=== PATIENT | female | born 1940 | race Caucasian/White ===

== ENCOUNTER 2019-02-19 09:30 | Inpatient (IN) ==
[2019-02-19] MEDS ORDERED: COMPAZINE IV PRN (14:47)
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
--- NOTE | 2019-02-19 15:00 | EKG Report ---
Test Performed on : 02/19/2019 2:53:15 PM Test Reason : preop rythm eval Blood Pressure : / mmHG Vent. Rate : 085 BPM Atrial Rate : 085 BPM P-R Int : 174 ms QRS Dur : 074 ms QT Int : 392 ms P-R-T Axes : 065 -52 059 degrees QTc Int : 466 ms Sinus rhythm. with with sinus arrhythmia. Left axis deviation Anteroseptal infarct (cited on or before 01-MAY-2017) Abnormal ECG When compared with ECG of 01-MAY-2017 10:36, Criteria for Inferior infarct are no longer present Questionable change in initial forces of Anteroseptal leads Nonspecific T wave abnormality, improved in Lateral leads Confirmed by Gisel ARGUETA, Tim Crespo ([id number]) on 02/19/2019 6:05:52 PM
--- NOTE | 2019-02-19 15:15 | Diag Imaging Result Doc PS360 ---
CHEST-PORTABLE - 02/19/2019 INDICATION: r/o pna COMPARISON: 01/31/2019 FINDINGS: Stable right chest port. Stable old right rib deformity. Stable linear scarring at the left lung apex. No infiltrates or edema. Heart size is top normal. IMPRESSION: No acute disease. Electronically signed by Tobin Aranda 02/19/2019 3:13 PM
[2019-02-19] MEDS: NS 1,000 ML IV SCH ×2 (15:29→23:28)
[2019-02-19 16:11] LABS: BASO# 0.02 X1000 (0.0-0.2); BASO% 0.2 % (0.0-0.8); EOS# 0.34 X1000 (0.0-0.7); EOS% 3.8 % (0.0-10.0); HEMATOCRIT 48.1 % (37.0-47.0); HEMOGLOBIN 15.8 g/dL (12.0-16.0); IMM GRAN# 0.03 X1000 (0.0-0.04); IMM GRAN% 0.3 % (0.0-0.5); LYMPH# 1.08 X1000 (1.2-3.4); LYMPH% 12.1 % (20.5-51.1); MCH 32.8 PG (27-31); MCHC 32.8 g/dL (33-37); MCV 99.8 FL (81-99); MONO# 0.96 X1000 (0.11-0.59); MONO% 10.7 % (1.7-9.3); MPV 10.8 FL (7.4-10.4); NEUT# 6.52 X1000 (1.4-6.5); NEUT% 72.9 % (42.2-75.2); PLT 192 X1000 (130-400); RBC 4.82 XMIL (4.2-5.4); WBC 8.95 X1000 (4.8-10.8)
[2019-02-19 16:21] LABS: INR 1.46; PTT 48.7 Seconds (22.3-41.8)
[2019-02-19 16:26] LABS: URINE SOURCE CLEAN CATCH
[2019-02-19 16:27] LABS: BILIRUBIN URINE NEGATIVE (NEGATIVE); BLOOD URINE NEGATIVE (NEGATIVE); COLOR YELLOW; GLUCOSE URINE NEGATIVE (NEGATIVE); KETONE URINE NEGATIVE (NEGATIVE); LEUKOCYTES URINE NEGATIVE (NEGATIVE); NITRITE URINE NEGATIVE (NEGATIVE); PROTEIN URINE 30 mg/dL (NEGATIVE); TURBIDITY URINE CLEAR (CLEAR); UR EPITHELIAL CELLS <10 /HPF (<10); URINE BACTERIA NEGATIVE /HPF; URINE RBC <10 /HPF (<10); URINE WBC <10 /HPF (<10); UROBILINOGEN URINE NORMAL (NORMAL)
[2019-02-19] MEDS: PERCOCET-10 PO PRN ×2 (16:52→23:28)
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
--- NOTE | 2019-02-19 20:01 | GENERAL SURGERY CONSULTATION ---
DATE: 02/19/2019 REQUESTING PHYSICIAN: Dr. Hester. REASON FOR CONSULT: Pneumatosis intestinalis. HISTORY OF PRESENT ILLNESS: A 78-year-old female with a history of metastatic colon cancer with liver metastases, who has been treated by Dr. Hester. She had surgery by Dr. Morgan back in 2017. She has been doing okay and has been receiving radiation therapy, and has been developing some abdominal discomfort. She had a CT scan done as an outpatient that showed pneumatosis intestinalis. She has been admitted for further evaluation. I was asked to weigh an opinion. The patient is reporting some abdominal pain in her upper abdomen. PAST MEDICAL HISTORY: Includes: 1. Hypertension. 2. Metastatic colon cancer. PAST SURGICAL HISTORY: Includes: 1. Hysterectomy. 2. Multiple orthopedic surgeries. 3. Right port. 4. Colon resection. FAMILY HISTORY: Positive for colon cancer. SOCIAL HISTORY: Current smoker. ALLERGIES: Zofran, Phenergan, Dilaudid, morphine, penicillin. HOME MEDICATIONS: Reviewed. REVIEW OF SYSTEMS: A full 14 systems were reviewed and negative except as specified in HPI. PHYSICAL EXAMINATION: Vital Signs: Patient is currently afebrile. Her vital signs stable. General: No acute distress. Alert, interactive female who looks stated age. HEENT: Normocephalic, atraumatic. Pupils equal, round, reactive to light. Mucous membranes moist. Oropharynx benign. Neck: Supple. Trachea midline. Cardiovascular: Regular rate and rhythm. Lungs: Grossly clear. Abdomen: Soft. Some discomfort in the epigastric area, but no peritoneal signs. Extremities: Moves all extremities. Neurologic: Grossly intact. Skin: No signs of jaundice. Vascular: All extremities perfused. LABORATORY: Pending. CT scan as noted above with pneumatosis intestinalis. ASSESSMENT AND PLAN: A 78-year-old female with pneumatosis intestinalis. 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 We will consult Dr. Phoenix with GI for a colonoscopy to see what the mucosal surfaces look like. At this point, the patient is not toxic, so I do not think we have to do any kind of emergent operation. We will let Dr. Morgan know that the patient has been admitted. We will have him see her tomorrow. cc: Dedrick Chang MD
[2019-02-19] MEDS: KLONOPIN PO SCH (21:35)
[2019-02-20] MEDS: PERCOCET-10 PO PRN ×4 (05:25→22:28)
[2019-02-20 07:08] LABS: BASO# 0.03 X1000 (0.0-0.2); BASO% 0.4 % (0.0-0.8); EOS# 0.46 X1000 (0.0-0.7); EOS% 5.4 % (0.0-10.0); HEMOGLOBIN 15.5 g/dL (12.0-16.0); IMM GRAN# 0.04 X1000 (0.0-0.04); IMM GRAN% 0.5 % (0.0-0.5); LYMPH# 1.08 X1000 (1.2-3.4); LYMPH% 12.7 % (20.5-51.1); MONO# 0.91 X1000 (0.11-0.59); MONO% 10.7 % (1.7-9.3); MPV 10.6 FL (7.4-10.4); NEUT# 5.99 X1000 (1.4-6.5); NEUT% 70.3 % (42.2-75.2); PLT 155 X1000 (130-400); RDW 14.9 % (11.5-14.5); WBC 8.51 X1000 (4.8-10.8)
[2019-02-20 07:24] LABS: INR 1.17; PTT 28.1 Seconds (22.3-41.8)
[2019-02-20 07:41] LABS: AGAP 10; ALKALINE PHOSPHATASE 156 U/L (32-104); BUN 4 mg/dL (8-22); CALCIUM 7.9 mg/dL (8.8-10.2); CHLORIDE 106 mmol/L (98-107); COSMO 283; CREATININE 0.3 mg/dL (0.5-0.9); ESTIMATED GFR > 60; GLUCOSE 113 mg/dL (70-104); GOT 21 U/L (10-30); GPT 10 U/L (10-36); MAGNESIUM 1.5 mg/dL (1.5-2.7); POTASSIUM 2.9 mmol/L (3.5-5.1); SODIUM 143 mmol/L (136-145); TCO2 27 mmol/L (25-35)
--- NOTE | 2019-02-20 07:50 | PROGRESS NOTE ---
DATE: 02/20/2019 SUBJECTIVE: Ms. Ibarra did not sleep much last night, a little more comfortable. She has most of her discomfort on the right side, she says where her liver is. She remains afebrile. OBJECTIVE: Vital Signs: Temperature 98.3 degrees, pulse 87, respirations 17, blood pressure 129/81. HEENT: Pupils are equal and round. Lungs: Clear in all lung saravia. Cardiovascular: Regular rate without murmur or S3. Abdomen: Soft. Skin: Warm and dry. Urine output was 3400 mL. LABORATORY DATA: Reviewed labs from yesterday. White count 8510, hematocrit 47, platelet count 155,000. Magnesium 1.7. TSH was 0.47. Urinalysis unremarkable. Her chest x-ray, no acute disease. ASSESSMENT AND PLAN: 1. Metastatic colon cancer, KRAS mutated with liver metastasis. 2. Apparent pneumatosis of the transverse colon concerning for bowel ischemia. 3. Hypokalemia. Continue supplement as needed. 4. Intractable nausea, vomiting, and diarrhea that is improved. Her stools have slowed down. 5. Anorexia and weight loss. She figures she has lost about 35 pounds over the last couple of years. She is getting Percocet for her pain. REVIEW OF HER ORDERS: She is on Klonopin 0.5 mg b.i.d., normal saline at 125 mL an hour, oxycodone 1 q.6 hours p.r.n., Compazine 10 mg IV 4 times a day p.r.n. for nausea. I think the plan is to pursue a colonoscopy. General surgery is following, Dr. Chang. We want to look at what the mucosal surface looks like. The patient is not toxic at this time. cc: Evangelista Leigh MD
[2019-02-20] MEDS: NS 1,000 ML IV SCH ×2 (07:55→20:46)
[2019-02-20] MEDS ORDERED: NS 1,000 ML IV SCH (08:06)
[2019-02-20] MEDS: KLONOPIN PO SCH ×2 (08:35→20:46)
[2019-02-20] MEDS: REGLAN IV PRN (08:35)
[2019-02-20] MEDS: LOVENOX SUBQ SCH (08:35)
[2019-02-20] MEDS ORDERED: ZOFRAN IV SCH (09:00)
[2019-02-20] MEDS: NS IV SCH ×2 (10:00→20:47)
[2019-02-20] MEDS: ZOFRAN IV SCH ×2 (10:00→20:47)
--- NOTE | 2019-02-20 12:24 | HEMO/ONC PROGRESS NOTE ---
DATE: 02/20/2019 HISTORY OF PRESENT ILLNESS: Ms. Ibarra is awake, sitting up in bed this morning. She states that she feels slightly better than she did yesterday due to the IV fluids. She states she is still nauseated and has abdominal pain. She states she did not sleep very well last night. She has right-sided abdominal pain and she is very anxious. OBJECTIVE: Vital Signs: Temperature 97.7 degrees, pulse rate 80, respiratory rate 18, blood pressure 130/70, O2 saturation 97% on room air. She is in 9/10 abdominal pain. General: This is an elderly female in no acute distress. She does appear very anxious. HEENT: Sclerae is anicteric. PERRLA. Oral mucosa is dry. Skin: Skin appears dry, intact. No petechiae, ecchymosis, or rash noted. Cardiovascular: Normal S1, S2. Heart rate and rhythm is regular. Respiratory: Chest is clear to auscultation. Normal respiratory effort. Gastrointestinal: Soft and nondistended. Tenderness to right upper quadrant. Neurological: Awake, alert, and oriented x3. She has decreased mobility of her left lower extremity and walks with a limp. Extremities: No lower extremity edema noted. LABORATORY: WBC is 8.51, hemoglobin 15.5, hematocrit 47.0, platelet count 155,000. ANC 5.99. Potassium 2.9, creatinine 0.3, calcium 7.9, magnesium 1.5. ASSESSMENT: 1. Metastatic colon cancer, KRAS mutated with liver metastasis. 2. Apparent pneumatosis of the transverse colon wall concerning for bowel ischemia. 3. Hypokalemia. 4. Intractable nausea, vomiting, and diarrhea that is improving. 5. Anorexia and weight loss, poor nutrition and deconditioning. PLAN: The patient needs to remain on IV fluids for dehydration. We have also added ProcalAmine to improve her nutritional status. The patient states that she remains nauseated. We have added some more nausea medicines to her orders. We appreciate the GI consult to pursue a colonoscopy to view the mucosal surface. Continued medical management of the patient. We will continue to follow along closely. Dictated by KARMEN Gaytan for Gregorio Hester MD cc: Gregorio Hester MD [facility]
[2019-02-20] MEDS: CIPRO 400 MG/D5W 400 MG/200 ML IVPB IV SCH (15:50)
[2019-02-20] MEDS: FLAGYL 500 MG/NS 500 MG/100 ML IVPB IV SCH (16:03)
[2019-02-20] MEDS: CLINIMIX E 4.25%-5% SOLUTION 1,000 ML IV SCH (16:48)
--- NOTE | 2019-02-20 20:38 | GENERAL SURGERY PROGRESS NOTE ---
DATE: 02/20/2019 SUBJECTIVE: Feels some better. She is more alert. She continues to have some vague abdominal discomfort. No fevers. No tachycardia. OBJECTIVE: Vital Signs: Blood pressure 130/70. General: She is alert. Cardiovascular: Normal rate. Abdomen: Soft, nontender, nondistended. LABORATORY DATA: White count is 8, hematocrit is 47. Creatinine is 0.3. ASSESSMENT AND PLAN: A 78-year-old female admitted with abdominal pain. She has metastatic colon cancer, status post right colectomy almost 3 years ago. She has undergone adjuvant therapy to her liver via chemoembolization, as well as apparently external beam radiation therapy. There was question of pneumatosis, although this is not definitive on her CT scan. She has a normal white count with no fevers, and her abdominal exam is benign. I would begin gradually advancing her diet as tolerated. She does need to be on stool softeners. I would hold off on any colonoscopy intervention at this juncture until she is no longer having abdominal pain. We can arrange this as an outpatient. She has been somewhat lost to followup over the last couple years, and I do not know whether she has had a postoperative colonoscopy or not, but this would be important to obtain. cc: Montana Morgan MD
[2019-02-21] MEDS: FLAGYL 500 MG/NS 500 MG/100 ML IVPB IV SCH ×3 (00:55→16:25)
[2019-02-21] MEDS: CIPRO 400 MG/D5W 400 MG/200 ML IVPB IV SCH ×2 (03:32→14:56)
[2019-02-21] MEDS: CLINIMIX E 4.25%-5% SOLUTION 1,000 ML IV SCH ×2 (03:36→18:47)
[2019-02-21] MEDS: PERCOCET-10 PO PRN ×4 (04:05→22:48)
[2019-02-21] MEDS: REGLAN IV PRN (04:05)
[2019-02-21] MEDS: NS 1,000 ML IV SCH ×2 (04:08→16:22)
[2019-02-21] MEDS: ZOFRAN IV SCH ×2 (08:27→20:21)
[2019-02-21] MEDS: KLONOPIN PO SCH ×2 (08:27→20:21)
[2019-02-21] MEDS: LOVENOX SUBQ SCH (08:27)
[2019-02-21] MEDS: NS IV SCH ×2 (08:27→20:21)
--- NOTE | 2019-02-21 11:08 | PROGRESS NOTE ---
DATE: 02/21/2019 SUBJECTIVE: She is feeling about 50% better than yesterday by report. OBJECTIVE: Vital signs: Temperature 97.9 degrees, pulse 76, respirations 18, blood pressure 134/67. HEENT: Pupils are equal and round. Lungs: Are clear in all lung saravia. Cardiovascular: Regular rhythm and rate without murmur or S3. Abdomen: Is soft. Skin: Is warm and dry. FINDINGS ON ADMISSION: Admitted with abdominal pain has metastatic colon cancer status post right colectomy about 3 years ago. She has undergone adjuvant therapy with chemo for liver via chemoembolization as well as external beam radiation. There was question of pneumatosis, although this is not definite on the CT scan. Normal white count with no fevers. Abdominal exam was benign. So I think the plan is to advance her diet as possible. She feels better. Abdominal pain is diminished. Temp is afebrile, temperature 97.9 degrees, pulse 76, respirations 18, blood pressure 134/67. Pupils are equal round. Lungs are clear in all lung saravia. Cardiovascular regular rate without murmur or S3. ASSESSMENT AND PLAN: 1. Metastatic colon cancer, KRAS mutated with liver metastasis. 2. Apparent pneumatosis of the transverse colon, but appears to be doing better clinically. Concern for bowel ischemia. 3. Hypokalemia. 4. Intractable nausea, vomiting, diarrhea, which is improving. 5. Anorexia and weight loss. We are apparently going to advance the diet as able. REVIEW OF ORDERS: The patient on Cipro 400 mg IV q.12h, Klonopin 0.5 mg b.i.d., Flagyl 500 mg IV q.8 hours, Clinimix 75 mL an hour, oxycodone 1 q.6 hours p.r.n.. cc: Evangelista Leigh MD
--- NOTE | 2019-02-21 12:37 | GASTROENTEROLOGY CONSULTATION ---
DATE: 02/20/2019 REASON FOR CONSULTATION: Pneumatosis intestinalis. HPI: Ms. Howie Ibarra is a 78-year-old woman with past medical history of metastatic colon cancer with liver metastases who underwent right hemicolectomy in March 2017, status post chemotherapy with FOLFIRI and Avastin. That was completed on 11/11/2018 and 2 rounds of Y-90 [*] in December and 01/21/2019 of this year, who presents with abdominal pain, nausea, vomiting, and diarrhea. The patient reports having developed projectile, nonbloody, nonbilious emesis and periumbilical pain immediately following her Y-90 treatment. Her symptoms have been ongoing since December with intermittent dry heaving. She is in tolerating liquids and, however, p.o. intake of solids have decreased significantly. She also notes having diarrhea with 4 to 7 bowel movements a day that would be watery. No blood or melena. She complains of fever with low-grade temperature around 100. She was given a ten-day course of antibiotics after her lactase by Dr. Angeles did not improve her symptoms. She endorses this with generalized fatigue with lightheadedness. No chest pain or shortness of breath. She had a staging CT of the chest, abdomen and pelvis by Dr. Hester on the day of presentation, which prompted her admission to the hospital. There were some findings that showed apparent pneumatosis in the transverse colon wall concerning for bowel ischemia. REVIEW OF SYSTEMS: As per HPI, otherwise 12 point review of systems is negative. Of notes, she reports significant weight loss over the last 3 months. Her weight has come down from 145 to 108 pounds. PAST MEDICAL HISTORY: As per HPI. Other history includes hypertension, osteoporosis. PAST SURGICAL HISTORY: Hysterectomy, multiple orthopedic surgeries of the left leg, right chest port, right roshni colectomy. FAMILY HISTORY: Mother had colon cancer. SOCIAL HISTORY: She is a 1/2 pack per day smoker. No alcohol or drug use. MEDICATIONS: She is on Klonopin and Percocet, vitamin D, omeprazole, lisinopril, Norvasc, potassium. ALLERGIES: To morphine, penicillin, Dilaudid, Xanax, Phenergan. PHYSICAL EXAMINATION: Vital Signs: Temperature is 98.9 degrees, heart rate is 84, blood pressure 134/73, O2 saturation 87% on 2 L nasal cannula. General: The patient is awake, alert, in no acute distress. HEENT: Sclerae anicteric. Moist mucous membranes. Extraocular motor intact. Neck: Supple. No JVD lymphadenopathy. Cardiac: Regular rate and rhythm. No murmurs. Lungs: Clear to auscultation bilaterally. No wheezing. Abdomen: Soft, minimal tenderness to deep palpation throughout. No rebound or guarding. Bowel sounds present. No ascites. Extremities: No clubbing, cyanosis, or edema. Neurologic: Nonfocal. LABS: White count 8.5, hemoglobin 15.5, platelets of 155,000. INR 1.17. Sodium 143, potassium 2.9, chloride 106, bicarb 27, BUN of 4, creatinine 0.3, glucose 113. LFTs notable for alkaline phosphatase of 156, total protein 6.0, albumin 3.0. Troponins negative. TSH 0.47. UA shows proteinuria. Blood cultures x2 no growth to date. IMAGING: CT of chest, abdomen and pelvis with contrast on 02/19/2019 shows no change in the chest, apparent pneumatosis of transverse wall and some of the ascending colon. This was not previously seen. No portal venous gas. Stable advanced vascular disease of the abdominal aorta. 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 The hepatic veins are patent. No small bowel obstruction. No free fluid. There is an increase in size of the metastases in the anterior right lobe of the liver measuring 3.8 x 5.9 cm, stable. Questionable thickened small area of hypodensity at the anterior fissure that may just be fatty change. ASSESSMENT AND PLAN: Ms. Hwoie Ibarra is a 78-year-old woman with past medical history of metastatic colon cancer with hepatic metastases, who is status post chemotherapy with FOLFIRI and Avastin completed in November 2018 and recent Y-90 in December and January 21, who presents with nausea, vomiting, diarrhea, and abdominal pain. Found to have pneumatosis intestinalis on CT in the transverse and descending colon as well as increased size of her liver metastases. Her vital signs are stable. Her white count is normal. Her abdominal exam shows no signs of peritonitis and is minimally tender to palpation. Her labs are unrevealing except for some mild hypokalemia likely related to her nausea, vomiting, diarrhea, protein-calorie malnutrition with her low BUN, creatinine, and mildly elevated alkaline phosphatase. We will check a lactate; however, I suspect that will be normal. I have put her on empiric antibiotics with Cipro and Flagyl given her penicillin allergy. I spoke with interventional radiology at [facility] who said that is unusual for patient to develop pneumatosis after Y90. The patient does have significant advanced peripheral artery disease of the abdominal aorta and a moderate stenosis of the SMA, which could represent or explain her pneumatosis if she had transient ischemia. At this time, her presentation does not warrant endoscopic evaluation. I have also ordered Clostridium difficile studies to rule out Clostridium difficile as the cause of her diarrhea. We will monitor clinically. We will consider abdominal exams. Surgery is following as well as Oncology. We will try continue on a clear liquid diet for now. Thank you for this consult. We will follow with you. Please call with any questions or concerns.
--- NOTE | 2019-02-21 15:13 | GENERAL SURGERY PROGRESS NOTE ---
DATE: 02/21/2019 Ms. Ibarra says she feels a little bit better. She is afebrile with stable hemodynamics. She is taking her liquids. PLAN: The plan is to advance her diet if possible. cc: David Spring MD
--- NOTE | 2019-02-21 16:47 | Diag Imaging Result Doc PS360 ---
EXAM: KUB ABDOMEN INDICATION: Eval for Pneumatosis intestinalis TECHNIQUE: One view COMPARISON: 01/31/2019 FINDINGS: There is a small amount of retained barium in the descending and sigmoid colon from a previous study. There are unremarkable bowel gas and stool patterns. There is no obstructive pattern. There is no evidence of large volume free abdominal gas. There is no discrete radiographic evidence of pneumatosis intestinalis. IMPRESSION: Essentially unremarkable plain radiograph of the abdomen. No evidence of pneumatosis intestinalis by plain radiograph. Electronically signed by John Connelly 02/21/2019 4:45 PM
[2019-02-21] MEDS: CULTURELLE PO SCH (20:21)
[2019-02-21] MEDS: MIRALAX PO SCH (20:21)
--- NOTE | 2019-02-21 22:21 | GASTROENTEROLOGY PROGRESS NOTE ---
DATE: 02/21/2019 SUBJECTIVE: The patient is resting in bed. She is feeling better. She denies any fevers, rigors, chills. Denies any nausea or vomiting. She complains of constipation. She has mild bloating in the abdomen, which she attributes to constipation. She is eating well. OBJECTIVE: Vital signs: Temperature 98, pulse rate of 82, respiratory rate 18, blood pressure 133/70, saturating 90% on nasal cannula. Body weight of 106 pounds, 2 ounces. BMI of 20.1 kg/m2. General Appearance: Thinly built, lying in bed, in no acute distress. HEENT: No pallor. No icterus. Neck: Supple. Abdomen: Protuberant, tympanic on percussion. Mild discomfort in the pelvic region. No rebound or guarding. Extremities: No cyanosis or clubbing. Neurologic: She is alert, awake, oriented x3. LABS: No labs were drawn today. Her abdominal x-ray was done today, which showed essentially unremarkable plain radiograph of the abdomen. No evidence of pneumatosis intestinalis by plain radiograph. IMPRESSION AND PLAN: 1. Metastatic colon cancer with KRAS mutation with liver metastases. This is being followed by the primary team and Oncology team. 2. Intestinal pneumatosis of the transverse colon. She is feeling better. Surgery is on board. This could be a benign finding, but she does have extensive vascular disease in the aorta and small vessels, attributed to chronic tobacco abuse. She may need a repeat imaging in the form of CT scan in 72 hours to confirm the resolution of pneumatosis. Her lactate is normal. Her abdominal x-ray is also normal. We will continue supportive management. 3. Tobacco abuse. Patient counseled to quit smoking completely. 4. Peripheral vascular disease, based on imaging. Continue to watch for now. 5. Constipation. We will start on MiraLAX twice daily. 6. Intractable nausea and vomiting, improving. 7. Anorexia/weight loss. We will continue to advance her diet as tolerated. 8. Deep venous thrombosis with Lovenox once daily. 9. She will continue on empiric antibiotics and also the Cipro and Flagyl for now. 10. Gastrointestinal prophylaxis: I will start with Pepcid once daily. The above plans were discussed with the patient and all questions answered. Please call us with any further questions. cc: MD Evangelista Reid MD Naveen T. Lobo, MD [facility]ENTER[facility]usam
[2019-02-22] MEDS: FLAGYL 500 MG/NS 500 MG/100 ML IVPB IV SCH ×3 (00:09→17:57)
[2019-02-22] MEDS: CIPRO 400 MG/D5W 400 MG/200 ML IVPB IV SCH ×2 (02:48→15:37)
[2019-02-22] MEDS: PERCOCET-10 PO PRN ×3 (04:07→16:29)
--- NOTE | 2019-02-22 07:47 | PROGRESS NOTE ---
DATE: 02/22/2019 SUBJECTIVE: Ms. Ibarra is feeling better but she still has not had a bowel movement. Said the MiraLAX is not working but she does feel better. OBJECTIVE: Temperature 99.1 degrees, pulse 77, respirations 18, blood pressure 133/75. Pupils are equal and round. Lungs are clear in all lung saravia. Cardiovascular Examination: Regular rhythm and rate without murmur or S3. Abdomen is soft. Skin is warm and dry urine. Output is 1300 mL. ASSESSMENT AND PLAN: 1. Metastatic colon cancer, KRAS mutated and with liver metastasis. 2. Questionable pneumatosis of the transverse colon. This seems to be improving. Still has not had a bowel movement. We will probably add lactulose to her MiraLAX and see if we can help with that. 3. Hypokalemia, was replenished. 4. Intractable nausea, vomiting, and diarrhea, which is improving. 5. Anorexia with weight loss. 6. What will do is add lactulose 30 mL twice a day. The MiraLAX she is already getting twice a day. We will give her some Yvonne-Colace as well twice a day and see if that will help with bowel movements. She is getting Clinimix 75 mL an hour. cc: Evangelista Leigh MD
[2019-02-22] MEDS: NS 1,000 ML IV SCH (07:49)
[2019-02-22] MEDS: ZOFRAN IV SCH ×2 (09:16→22:24)
[2019-02-22] MEDS: NS IV SCH ×2 (09:16→22:24)
[2019-02-22] MEDS: KLONOPIN PO SCH ×2 (09:16→22:18)
[2019-02-22] MEDS: CULTURELLE PO SCH ×2 (09:16→22:18)
[2019-02-22] MEDS: PEPCID PO SCH (09:16)
[2019-02-22] MEDS: MIRALAX PO SCH ×2 (09:16→22:18)
[2019-02-22] MEDS: LOVENOX SUBQ SCH (09:17)
[2019-02-22] MEDS: PERICOLACE PO SCH ×2 (10:35→22:18)
[2019-02-22] MEDS: LACTULOSE PO SCH ×2 (10:36→22:18)
[2019-02-22] MEDS: CLINIMIX E 4.25%-5% SOLUTION 1,000 ML IV SCH (15:37)
--- NOTE | 2019-02-22 16:07 | Diag Imaging Result Doc PS360 ---
EXAM: KUB ABDOMEN INDICATION: evaluate for constipation or obstruction TECHNIQUE: One view COMPARISON: 02/21/2019 FINDINGS: There are unremarkable bowel gas and stool patterns. There is no obstructive bowel pattern. There is no evidence of large volume free abdominal gas. There is no evidence of organomegaly. IMPRESSION: No evidence of acute pathology by plain radiograph. Electronically signed by John Connelly 02/22/2019 4:04 PM
--- NOTE | 2019-02-22 18:33 | GASTROENTEROLOGY PROGRESS NOTE ---
DATE: 02/22/2019 ATTENDING PHYSICIAN: Dr. Leigh. PRIMARY CARE PHYSICIAN: Dr. Gregorio Hester. SUBJECTIVE: Patient currently feeling better. She has moved her bowels. She is eating better. She denies any nausea or vomiting. She denies any fevers, rigors, chills. She denies any blood in the stools. She denies any abdominal pain. OBJECTIVE: Vital signs: Temperature 98.6 degrees, pulse of 77, respiratory rate 18, blood pressure 141/77, saturating 96% on nasal cannula. Body weight of 106 pounds 2 ounces. BMI 20.1 kg/m. General: She is a thinly built, lying in bed, in no acute distress. HEENT: No pallor. No icterus. Neck: Supple. Abdomen: Soft, nontender. No guarding or rebound. Extremities: No cyanosis or clubbing. Neurologic: She is alert, awake, and oriented x3. LABORATORY DATA: No labs were drawn today. Her lactate done yesterday was 1. C. difficile toxin was negative and C. difficile antigen was positive. Ova and parasites are negative. Stool culture is pending. Blood culture negative at 48 hours. Abdominal x-ray just done today showed unremarkable bowel gas and stool pattern. Nonobstructive bowel pattern. There is no evidence of organomegaly. IMPRESSION AND PLAN: 1. Metastatic colon cancer with liver metastasis. She is being followed by Dr. Hester. 2. Intestinal pneumatosis of transverse colon. Currently, she is asymptomatic. This could be secondary to extensive vascular disease in the mesenteric vessels versus a benign finding versus any side effect from chemo agents. For now she is feeling better. She is eating better. She is moving her bowels. Her lactate is normal. No need for any endoscopic intervention at this time. If the patient has any abdominal discomfort or symptoms in future then she may need repeat imaging with CT scan to rule out ischemia. 3. Tobacco abuse. Patient counseled to quit smoking completely. 4. Peripheral vascular disease, aware. 5. Constipation. She will continue MiraLAX 17 g p.o. b.i.d. She will continue a high-fiber diet. 6. Intractable nausea and vomiting is improved. She is eating well. Anorexia and weight loss. She will continue to advance the diet as tolerated. 7. DVT prophylaxis with Lovenox once daily. 8. GI prophylaxis with Pepcid once daily. 9. The patient will hopefully be discharged if okay with the primary care team and Oncology team. We will sign off at this time. Please call with any further questions. cc: MD Gregorio Reid MD MTDD
[2019-02-23] MEDS: FLAGYL 500 MG/NS 500 MG/100 ML IVPB IV SCH ×3 (01:00→18:25)
[2019-02-23] MEDS: PERCOCET-10 PO PRN ×4 (02:29→19:28)
[2019-02-23] MEDS: CIPRO 400 MG/D5W 400 MG/200 ML IVPB IV SCH ×2 (04:00→14:27)
[2019-02-23] MEDS: CLINIMIX E 4.25%-5% SOLUTION 1,000 ML IV SCH ×2 (05:38→09:55)
[2019-02-23] MEDS: NS 1,000 ML IV SCH ×2 (06:17→09:55)
--- NOTE | 2019-02-23 09:50 | HEMO/ONC PROGRESS NOTE ---
DATE: 02/23/2019 SUBJECTIVE: Ms. Ibarra is sitting up in bed. She is being moved to a room on the same floor today. Ms. Ibarra states that she continues to feel very weak and fatigued. She does not feel like she is ready to go home yet. She states that she has nausea still and her diarrhea has started back. She states that she is eating but does not feel she is gaining any strength yet. She did not sleep well last night due to anxiety. She states her abdomen still hurts but it has improved. OBJECTIVE: Vital Signs: Temperature 98.6 degrees, pulse rate 77, respiratory rate 17, blood pressure 146/79, O2 saturation 97% on room air. Physical Examination: Constitutional: This is an elderly female in no acute distress. HEENT: Sclerae are anicteric. PERRLA. Oral mucosa is dry. Skin: The skin appears dry but intact. No petechiae, ecchymoses, or rashes noted. Cardiovascular: Normal S1, S2. Heart rate and rhythm are regular. Respiratory: Chest is clear to auscultation. Normal respiratory effort. Gastrointestinal: Soft and nondistended. Slight tenderness remains to the right upper quadrant. Neurological: Awake, alert, and oriented. She has decreased mobility of her left lower extremity and walks with a limp. Extremities: No lower extremity edema noted. Laboratory: No labs have been drawn today. ASSESSMENT: 1. Metastatic colon cancer, KRAS mutated with liver metastasis. 2. Intestinal pneumatosis of transverse colon. 3. Hypokalemia. 4. Nausea, vomiting, and diarrhea. 5. Anorexia and weight loss, poor nutrition and deconditioning. PLAN: The patient states she has continued to have mild nausea. Please continue her nausea medicines around the clock to give her relief. The patient states that her diarrhea has returned. It was decided that the patient did not need a colonoscopy. The patient needs to get up out of bed to begin working on her strength and attempt some hospital exercises. Consult PT. She is tolerating a full liquid diet well without vomiting. We will continue to follow along closely. Dictated by KARMEN Gaytan for Gregorio Hester MD cc: MD LIBIA Harrell
[2019-02-23] MEDS: CULTURELLE PO SCH ×2 (09:52→21:52)
[2019-02-23] MEDS: PEPCID PO SCH (09:53)
[2019-02-23] MEDS: LOVENOX SUBQ SCH (09:53)
[2019-02-23] MEDS: PERICOLACE PO SCH ×2 (09:53→21:52)
[2019-02-23] MEDS: LACTULOSE PO SCH ×2 (09:54→21:53)
[2019-02-23] MEDS: NS IV SCH ×2 (09:54→21:52)
[2019-02-23] MEDS: ZOFRAN IV SCH ×2 (09:54→21:52)
[2019-02-23] MEDS: MIRALAX PO SCH ×2 (09:56→21:53)
[2019-02-23] MEDS: KLONOPIN PO SCH ×2 (10:02→21:52)
--- NOTE | 2019-02-23 13:40 | PROGRESS NOTE ---
DATE: 02/23/2019 SUBJECTIVE: She is feeling better. Tolerating liquids and was eating a little bit of oats today. She has had some loose bowel movements. OBJECTIVE: Temperature 98.6 degrees, pulse 77, respirations 17, blood pressure 146/79. Pupils are equal and round. Lungs are clear in all lung saravia. Cardiovascular Examination: Regular rhythm and rate without murmur or S3. ASSESSMENT/PLAN: 1. Metastatic colon cancer, KRAS mutated with liver metastasis. 2. Intestinal pneumatosis in transverse colon. Seems to be getting better. 3. Hypokalemia, which we have supplemented. 4. Nausea, vomiting, and diarrhea which is greatly improved. 5. Anorexia. Oral intake is improving as well so continue present regimen. REVIEW OF ORDERS: She is on ciprofloxacin 400 mg IV q.12 and she is taking lactobacillus 1 tablet twice a day. Getting antiemetics. She is on MiraLAX 17 g b.i.d. and getting Clinimix at 75 mL an hour, and on sennosides docusate 1 b.i.d. with her IV fluids going at 50 mL an hour. On Klonopin 0.5 mg b.i.d. and Flagyl 500 mg IV q.8. Seems like we are heading in the right direction. Seems to be doing better. I am going to get some physical therapy ordered to try and get her out of bed and work on her strength. cc: Evangelista Leigh MD
[2019-02-23] MEDS: REGLAN IV PRN (15:44)
[2019-02-24] MEDS: PERCOCET-10 PO PRN ×4 (01:24→21:03)
[2019-02-24] MEDS: NS 1,000 ML IV SCH (01:27)
[2019-02-24] MEDS: CLINIMIX E 4.25%-5% SOLUTION 1,000 ML IV SCH (01:27)
[2019-02-24] MEDS: FLAGYL 500 MG/NS 500 MG/100 ML IVPB IV SCH ×3 (01:28→15:23)
[2019-02-24] MEDS: CIPRO 400 MG/D5W 400 MG/200 ML IVPB IV SCH ×2 (02:52→15:23)
[2019-02-24] MEDS: REGLAN IV PRN ×2 (04:30→18:00)
[2019-02-24 07:41] LABS: BASO# 0.01 X1000 (0.0-0.2); BASO% 0.2 % (0.0-0.8); EOS# 0.27 X1000 (0.0-0.7); EOS% 4.4 % (0.0-10.0); HEMATOCRIT 42.4 % (37.0-47.0); HEMOGLOBIN 13.4 g/dL (12.0-16.0); IMM GRAN# 0.02 X1000 (0.0-0.04); IMM GRAN% 0.3 % (0.0-0.5); LYMPH# 0.83 X1000 (1.2-3.4); LYMPH% 13.6 % (20.5-51.1); MCH 32.4 PG (27-31); MCHC 31.6 g/dL (33-37); MCV 102.4 FL (81-99); MONO# 0.82 X1000 (0.11-0.59); MONO% 13.4 % (1.7-9.3); MPV 11.4 FL (7.4-10.4); NEUT# 4.16 X1000 (1.4-6.5); NEUT% 68.1 % (42.2-75.2); PLT 127 X1000 (130-400); RBC 4.14 XMIL (4.2-5.4); RDW 14.2 % (11.5-14.5); WBC 6.11 X1000 (4.8-10.8)
[2019-02-24 07:51] LABS: AGAP 11; BUN 6 mg/dL (8-22); CHLORIDE 103 mmol/L (98-107); COSMO 286; CREATININE 0.3 mg/dL (0.5-0.9); ESTIMATED GFR > 60; GLUCOSE 135 mg/dL (70-104); MAGNESIUM 1.6 mg/dL (1.5-2.7); POTASSIUM 3.2 mmol/L (3.5-5.1); SODIUM 144 mmol/L (136-145); TCO2 30 mmol/L (25-35)
[2019-02-24] MEDS: ZOFRAN IV SCH ×2 (08:21→21:04)
[2019-02-24] MEDS: LACTULOSE PO SCH (08:21)
[2019-02-24] MEDS: LOVENOX SUBQ SCH (08:21)
[2019-02-24] MEDS: CULTURELLE PO SCH ×2 (08:21→21:03)
[2019-02-24] MEDS: PERICOLACE PO SCH (08:21)
[2019-02-24] MEDS: PEPCID PO SCH (08:21)
[2019-02-24] MEDS: NS IV SCH ×2 (08:21→21:04)
[2019-02-24] MEDS: MIRALAX PO SCH (08:21)
[2019-02-24] MEDS: KLONOPIN PO SCH ×2 (08:33→21:04)
--- NOTE | 2019-02-24 13:18 | HEMO/ONC PROGRESS NOTE ---
DATE: 02/24/2019 SUBJECTIVE: Ms. Ibarra is sitting up in her bed. She states she is very hungry this morning, and waiting on her breakfast. She is wanting to try more solids foods. She states that she is feeling better this morning. She is wanting to work with Physical Therapy and get out of the bed to work on her strength. OBJECTIVE: Vital Signs: Temperature 98.7 degrees, pulse rate 88, respiratory rate 18, blood pressure 145/70, O2 saturation 94% on room air, 8/10 abdominal pain. General: Elderly-appearing female in no acute distress. HEENT: Sclerae anicteric. PERRLA. Oral mucosa is moist. Skin: Skin appears dry, but intact. No petechiae, ecchymosis, or rashes noted. Cardiovascular: Normal S1, S2. Heart rate and rhythm are regular. Respiratory: Clear to auscultation. Normal respiratory effort. Gastrointestinal: Soft and nondistended without tenderness today. Neurological: Awake, alert, and oriented x3. She has decreased mobility of her left lower leg, and walks with a limp. Extremities: No lower extremity edema noted. LABORATORY DATA: WBC 6.11, hemoglobin 13.4, hematocrit 42.4, platelet count 127,000. Potassium 3.2, calcium 8.0. ASSESSMENT: 1. Metastatic colon cancer, KRAS mutated with liver metastasis. 2. Intestinal pneumatosis of the transverse colon. 3. Hypokalemia. 4. Nausea, vomiting, and diarrhea, improving. 5. Anorexia, weight loss, poor nutrition, and deconditioning. PLAN: Continue treatment per medical management. She is getting antiemetics, which are relieving her nausea. The patient's appetite is returning. She continues to feel a little better today. She is eager to get started with Physical Therapy and work on her strength. We will continue to follow along. Dictated by KARMEN Gaytan for Gregorio Hester MD cc: Gregorio Hester MD [facility]
--- NOTE | 2019-02-24 19:14 | PROGRESS NOTE ---
DATE: 02/24/2019 SUBJECTIVE: Today Ms. Ibarra refers to be doing fairly okay. No new complaints. She says she has not had any vomiting and no diarrhea. Abdominal pain resolved. OBJECTIVE: Vital signs: Blood pressure is 174/89, pulse of 85, respirations 14, temperature 98.5 degrees. General: Ms. Ibarra is a 78-year-old female. She is in bed in no distress. HEENT: Mucosa is pink and moist. Anicteric. Acyanotic. Neck: Supple. Chest: Clear to auscultation. Cardiovascular: Regular rate and rhythm. Abdomen: Soft, nontender. Bowel sounds present. There are some old scars on the anterior abdominal wall from previous laparoscopic surgeries. Extremities: No pedal edema. Central nervous system: Patient is awake, alert, and oriented. LABORATORY DATA: WBC is 6.11, hemoglobin is 13.4, platelet count of 127,000. Chemistry is also reviewed. It is completely normal. ASSESSMENT: 1. Metastatic colon cancer, KRAS mutated with liver metastases. 2. Intestinal pneumatosis of transverse colon. Etiology is unclear; however, Ms. Ibarra has been on Avastin in the past. Last treatment was somewhere in November. Avastin is associated with intestinal necrosis 3. Nausea, vomiting and diarrhea, resolved. 4. Hypokalemia, improved. PLAN: In general, I think Ms. Ibarra is doing well. Abdomen is less tender. She is tolerating her diet. We will re-evaluate her in the morning and discuss her discharge plans with her oncologist. cc: Jet Soriano MD [facility]
[2019-02-25] MEDS: CLINIMIX E 4.25%-5% SOLUTION 1,000 ML IV SCH (01:21)
[2019-02-25] MEDS: FLAGYL 500 MG/NS 500 MG/100 ML IVPB IV SCH ×2 (01:21→09:24)
[2019-02-25] MEDS: PERICOLACE PO SCH ×2 (02:37→10:16)
[2019-02-25] MEDS: MIRALAX PO SCH ×2 (02:37→10:15)
[2019-02-25] MEDS: LACTULOSE PO SCH ×2 (02:37→10:16)
[2019-02-25] MEDS: CIPRO 400 MG/D5W 400 MG/200 ML IVPB IV SCH (02:52)
[2019-02-25] MEDS: PERCOCET-10 PO PRN (02:52)
[2019-02-25] MEDS: LOVENOX SUBQ SCH (09:25)
[2019-02-25] MEDS: KLONOPIN PO SCH (09:56)
[2019-02-25] MEDS: CULTURELLE PO SCH (10:17)
[2019-02-25] MEDS: PEPCID PO SCH (10:17)
--- NOTE | 2019-02-25 11:39 | HEMO/ONC PROGRESS NOTE ---
DATE: 02/25/2019 SUBJECTIVE: Ms. Ibarra is sitting up in bed, awaiting her breakfast. She states that she feels so much better. Her nausea, vomiting, diarrhea, and abdominal pain have resolved. She has been walking around with physical therapy yesterday and by herself this morning. She felt her appetite has returned. She is slowly getting her strength back but she feels comfortable walking on her own. She states that she does feel comfortable going home at this time and she is ready to be discharged. OBJECTIVE: Vital Signs: Temperature 98.3 degrees, pulse rate 87, respiratory rate 18, blood pressure 153/90, O2 saturation 93% on room air. She is in 0/10 pain. Physical Examination: General: This is an elderly-appearing female in no acute distress. HEENT: Sclerae are anicteric. PERRLA. Oral mucosa is pink and moist. Skin: Skin appears dry but is warm and intact. No petechiae, ecchymoses, or rashes noted. Cardiovascular: Normal S1 and S2. Heart rate and rhythm are regular. Respiratory: Clear to auscultation. Normal respiratory effort. Gastrointestinal: Soft and distended without tenderness today. Neurological: Awake, alert, and oriented x3. She has decreased mobility of her left lower leg and walks with a limp. Extremities: No lower extremity edema noted. Laboratory: WBCs 6.11, hemoglobin 13.4, hematocrit 42.4, platelet count 127,000. Potassium 3.2. ASSESSMENT: 1. Metastatic colon cancer, KRAS mutated with liver metastasis. 2. Intestinal pneumatosis of the transverse colon. 3. Hypokalemia. 4. Nausea, vomiting, and diarrhea, resolved. 5. Anorexia, weight loss, poor nutrition, and deconditioning. PLAN: The patient appears to be doing better. She states she feels better. She feels comfortable going home at this time. We are okay with her discharge. She knows to follow up with us in the office next Saturday or to call sooner if she has any concerns. We will continue to follow up as needed. Dictated by KARMEN Gaytan for Gregorio Hester MD cc: Gregorio Hester MD [facility]
[2019-02-25 12:15] VITALS: BP 158/89
[2019-02-25] MEDS: ZOFRAN IV SCH (12:42)
[2019-02-25] MEDS: NS IV SCH (12:42)
--- NOTE | 2019-02-27 04:06 | DISCHARGE SUMMARY ---
ADMISSION DATE: 02/19/2019 DISCHARGE DATE: 02/25/2019 DISPOSITION: Home. FOLLOW-UP: 1. Dr. Phoenix. 2. Dr. Chang. 3. Dr. Hester. CONSULTATION DURING THIS ADMISSION: 1. Hematology/oncology was consulted. Patient was seen by Dr. Hester. 2. Surgery was consulted. Patient was seen by Dr. Chang, followed up by Dr. Spring and Dr. Morgan. 3. Gastroenterology was consulted. Patient was seen by Dr. Rodriguez, followed up by Dr. Phoenix. INVASIVE PROCEDURES: None. IMAGING STUDIES OF SIGNIFICANCE: 1. A chest x-ray showed no acute disease. 2. A KUB showed no evidence of pneumatosis intestinalis. 3. A repeat plain x-ray was unremarkable. 4. A CT scan of the chest, abdomen, and pelvis which was done prior to admission did show apparent pneumatosis of the transverse colon, and also increase in size of metastasis of the liver. ADMISSION DIAGNOSES: 1. Metastatic colon cancer, cross mutation with liver metastasis. 2. Apparent pneumatosis of the transverse colon. 3. Intractable nausea. 4. Weight loss. DIAGNOSIS AT TIME OF DISCHARGE: 1. Metastatic colon cancer crossed mutated with liver metastasis, which apparently is getting bigger. 2. Intestinal pneumatosis of the transverse colon, presumably due to Avastin. 3. Hypokalemia, improved. 4. Nausea, vomiting, and diarrhea, resolved. 5. Generalized weakness and deconditioning. Physical therapy was consulted. 6. Hypertension. DISCHARGE MEDICATIONS: 1. Amlodipine 10 mg p.o. daily. 2. Lisinopril 40 mg p.o. daily. 3. Xarelto 10 mg p.o. daily. 4. Klonopin 0.5 p.o. b.i.d. 5. Vitamin D. 6. Oxycodone. 7. Levofloxacin 250 p.o. daily. 8. Metronidazole 250 p.o. 3 times per day. 9. Lactobacillus 1 tablet daily. PRESENTING COMPLAINT: Abdominal pain. HISTORY OF PRESENTING COMPLAINT: Ms. Ibarra is a 78-year-old female who is known to have metastatic colon cancer to the liver. The patient has recently been treated with FOLFIRI and Avastin. Last chemo was 11/11/2018. She also underwent interventional radiology for tumor embolization in [place] on 01/21/2019. In any case, presented to Dr. Hester's office because of abdominal pain. A CT scan of the abdomen revealed pneumatosis intestinalis. She was referred for admission for medical management. HOSPITAL COURSE: Ms. Ibarra was admitted to the medical floor, was kept n.p.o. initially. She was adequately hydrated and was started on IV antibiotics. Consult was placed for both GI and Surgery. Patient was seen accordingly. Recommendation was just to treat it medically, since patient did not seem to have any acute abdomen. Over the course of the hospital stay, Ms. Ibarra continued to improve. Denied any abdominal pain. She was started on some clear liquid and was progressively advanced. At the time of the discharge, she was tolerating a regular low- salt diet. On the day of discharge, Ms Ibarra refers to be feeling a lot better. Denied any chest pain. Denied any abdominal pain, no diarrhea. Discharge vitals: Blood pressure was 158/89, pulse of 92, respirations 18, temperature is 98.9 degrees. Ms Ibarra was thought to be stable for discharge. She looked clinically stable. She was subsequently discharged and will follow up with Dr. Hester and the other subspecialties that have been involved with her care. All the discharge instructions were discussed with her. She voiced understanding. TIME SPENT: For discharge is 35 minutes. cc: Jet Soriano MD
== END 2019-02-25 14:17 | disposition home or self-care (01) | DRG 394 ==
LOC: SUATTDRO 09:30 → DIRADM 09:30 → 4N 14:13
PROVIDERS: ATTEND Internal Medicine

== ENCOUNTER 2019-05-08 18:15 | Inpatient (IN) ==
[2019-05-08 20:12] LABS: URINE SOURCE CATH
--- NOTE | 2019-05-08 20:18 | Diag Imaging Result Doc PS360 ---
EXAM: CHEST-1 VIEW HISTORY: Sepsis TECHNIQUE: Single view COMPARISON: 02/19/2019 FINDINGS: The lungs are well expanded. The heart is not enlarged. No change in the right jugular portacatheter. The vessels are not distended. There are no infiltrates. No effusion identified. IMPRESSION: No pneumonia Electronically signed by Josué Aguero 05/08/2019 8:16 PM
[2019-05-08 20:25] LABS: BILIRUBIN URINE NEGATIVE (NEGATIVE); BLOOD URINE NEGATIVE (NEGATIVE); COLOR YELLOW; GLUCOSE URINE NEGATIVE (NEGATIVE); KETONE URINE NEGATIVE (NEGATIVE); LEUKOCYTES URINE NEGATIVE (NEGATIVE); NITRITE URINE NEGATIVE (NEGATIVE); PH URINE 7.5; PROTEIN URINE TRACE mg/dL (NEGATIVE); SP GRAVITY URINE 1.009; TURBIDITY URINE CLEAR (CLEAR); UR EPITHELIAL CELLS <10 /HPF (<10); URINE BACTERIA 1+ /HPF; URINE RBC <10 /HPF (<10); URINE WBC <10 /HPF (<10); UROBILINOGEN URINE NORMAL (NORMAL)
--- NOTE | 2019-05-08 20:40 | EKG Report ---
Test Performed on : 05/08/2019 6:43:33 PM Test Reason : SOB Blood Pressure : / mmHG Vent. Rate : 091 BPM Atrial Rate : 091 BPM P-R Int : 000 ms QRS Dur : 074 ms QT Int : 366 ms P-R-T Axes : 000 -70 013 degrees QTc Int : 450 ms Atrial fibrillation. Left axis deviation Inferior infarct , age undetermined Anterior infarct (cited on or before 01-MAY-2017) Abnormal ECG When compared with ECG of 19-FEB-2019 14:53, Atrial fibrillation. has replaced Sinus rhythm. Inferior infarct is now present Questionable change in initial forces of Septal leads Nonspecific T wave abnormality now evident in Inferior leads Unconfirmed Result
[2019-05-08 21:01] LABS: BASO# 0.02 X1000 (0.0-0.2); BASO% 0.2 % (0.0-0.8); EOS# 0.12 X1000 (0.0-0.7); EOS% 1.3 % (0.0-10.0); HEMATOCRIT 54.1 % (37.0-47.0); HEMOGLOBIN 17.5 g/dL (12.0-16.0); IMM GRAN# 0.02 X1000 (0.0-0.04); IMM GRAN% 0.2 % (0.0-0.5); LYMPH# 0.77 X1000 (1.2-3.4); LYMPH% 8.6 % (20.5-51.1); MCH 32.1 PG (27-31); MCHC 32.3 g/dL (33-37); MCV 99.1 FL (81-99); MONO# 0.85 X1000 (0.11-0.59); MONO% 9.5 % (1.7-9.3); MPV 11.2 FL (7.4-10.4); NEUT# 7.14 X1000 (1.4-6.5); NEUT% 80.2 % (42.2-75.2); PLT 191 X1000 (130-400); RBC 5.46 XMIL (4.2-5.4); RDW 15.5 % (11.5-14.5); WBC 8.92 X1000 (4.8-10.8)
[2019-05-08 21:08] LABS: INR 1.17; PROTIME 15.1 Seconds (11.0-16.0)
[2019-05-08 21:09] LABS: PTT 33.4 Seconds (22.3-41.8)
[2019-05-08 21:30] LABS: AGAP 15; ALB/GLOB RATIO 0.9; ALBUMIN 2.9 g/dL (3.5-5.0); ALKALINE PHOSPHATASE 214 U/L (32-104); BUN 5 mg/dL (8-22); CALCIUM 8.8 mg/dL (8.8-10.2); CHLORIDE 95 mmol/L (98-107); CK PROFILE 47 U/L (24-173); COSMO 282; CREATININE 0.4 mg/dL (0.5-0.9); ESTIMATED GFR > 60; GLUCOSE 90 mg/dL (70-104); GOT 28 U/L (10-30); GPT 9 U/L (10-36); POTASSIUM 3.1 mmol/L (3.5-5.1); SODIUM 143 mmol/L (136-145); TCO2 33 mmol/L (25-35); TOTAL PROTEIN 6.3 g/dL (6.3-8.3)
--- NOTE | 2019-05-08 21:46 | PROVIDER DOCUMENTATION ---
HPI-General Adult - General Chief Complaint: SEPSIS ALERT - D Stated Complaint: WEAK, SOB, NOT EATING Time Seen by Provider: 05/08/19 19:25 Source: patient, family (son) Allergies/Adverse Reactions: Patient Allergies Allergy/AdvReac Type Severity Reaction Status Date / Time ondansetron Allergy head pain, Verified 05/08/19 21:44 [From Zofran (as nausea hydrochloride)] promethazine [From Phenergan] Allergy "hurt Verified 05/08/19 21:44 inside", nausea hydromorphone [From Dilaudid] AdvReac NAUSEA/VOMI Verified 05/08/19 21:44 TING morphine AdvReac HIVES Verified 05/08/19 21:44 Penicillins AdvReac Unknown Verified 05/08/19 21:44 Home Medications: Home Medication List Medication Instructions Recorded Confirmed Last Taken Type Amlodipine Besylate [Norvasc] 10 mg PO DAILY 04/01/17 05/08/19 1 Day Ago History ~05/07/19 Lisinopril 40 mg PO DAILY 01/31/19 05/08/19 1 Day Ago History ~05/07/19 Rivaroxaban [Xarelto] 10 mg PO QAM 01/31/19 05/08/19 1 Day Ago History ~05/07/19 Oxycodone HCl/Acetaminophen 1 ea PO Q6HR PRN 02/19/19 05/08/19 Unknown History [Percocet 10-325 mg Tablet] Metoclopramide [Reglan] 10 mg PO Q6H PRN PRN 05/08/19 05/08/19 Unknown History - History of Present Illness -Gen Adult Nature of Presenting Problems: Patient with h/o HTN, colon ca, a smoker reports progressive exertional sob for about 1 month now and now with associated fatigue. Last chemo or radiation therapy was January 2019. Presently on xetalto for PE noted 1 yr ago per son Location of Pain/Injury: reports: other (sob) Pain Radiation: reports: no radiation Quality of Pain: reports: none Onset/Duration: reports: other (weeks) Timing: reports: still present Context/Activities at Onset: reports: none Modifying Factors: improves with: nothing Associated Symptoms: reports: denies symptoms (`) Review of Systems - Adult - REVIEW OF SYSTEMS - ADULT Constitutional: reports: fatique Eyes: reports: no symptoms reported Ears, Nose, Mouth & Throat: reports: no symptoms reported Cardiovascular: reports: no symptoms reported Respiratory: reports: see HPI Gastrointestinal: reports: no symptoms reported Genitourinary: reports: no symptoms reported Musculoskeletal: reports: no symptoms reported Integumentary: reports: no symptoms reported Neurological: reports: no symptoms reported Psychiatric: reports: no symptoms reported Endocrine: reports: no symptoms reported Hematologic/Lymphatic: reports: no symptoms reported Allergic/Immunologic: reports: no symptoms reported Past History - Adult - PAST MEDICAL HISTORY-ADULT Review of Records: reports: Nursing Assessment Review, Medications Reviewed, Social history reviewed & non-contributory. Major Childhood Illnesses: reports: denies history Cardiovascular: reports: HTN Respiratory: reports: denies history Gastrointestinal: reports: cancer (colon) Obstetrical/Gynecological: reports: denies history Genitourinary: reports: denies history Musculoskeletal: reports: denies history Neurological: reports: denies history Endocrine/Immune: reports: denies history Other Conditions: reports: denies history - PRIOR SURGERIES/PROCEDURES Surgical/Procedure History: reports: appendectomy, hysterectomy, , bowel surgery - IMMUNIZATION STATUS Childhood Immunizations: See Nurse Assessment Flu Vaccine: See Nurse Assessment - FAMILY HISTORY Family History: reviewed, not pertinent - SOCIAL HISTORY Smoking: cigarettes Substance Use: denies Alcohol Use Frequency: never Physical Exam-General - PHYSICAL EXAM-ADULT Initial Vital Signs Reviewed: Yes - CONSTITUTIONAL General Appearance: appears well, alert, mild distress - EYES Eyes: PERRL/EOMI - HEAD, EARS, NOSE, MOUTH & THROAT HENMT: normocephalic/atraumatic - NECK Neck: non-tender, full range of motion, supple - RESPIRATORY Respiratory: chest non-tender, wheezing - CARDIOVASCULAR Cardiovascular: regular rate, rhythm, no edema - GASTROINTESTINAL (ABDOMEN) Abdominal Exam: non tender, soft - MUSCULOSKELETAL Back Exam: normal inspection Extremity: normal range of motion, non-tender - SKIN Integumentary: normal color - NEUROLOGIC 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 II-XII nml as tested - PSYCHIATRIC Psych/Mental Status: oriented x 3 Progress - PLAN OF CARE/RESULTS Progress/Plan/Lab Results: Vital Signs - 8 hr 05/08/19 18:30 05/08/19 19:57 05/08/19 20:31 Temperature 98.2 F Pulse Rate 94 H 84 79 Respiratory Rate 22 30 H 22 Blood Pressure 140/87 137/92 126/85 O2 Sat by Pulse Oximetry 90 L 96 05/08/19 21:01 05/08/19 21:31 Temperature Pulse Rate 78 79 Respiratory Rate 17 16 Blood Pressure 140/90 117/77 O2 Sat by Pulse Oximetry Laboratory Results - last 24 hr 05/08/19 05/08/19 05/08/19 19:40 20:17 20:17 WBC 8.92 RBC 5.46 H Hgb 17.5 H Hct 54.1 H MCV 99.1 H MCH 32.1 H MCHC 32.3 L RDW Std Deviation 15.5 H Plt Count 191 MPV 11.2 H Immature Gran % (Auto) 0.2 Neut % (Auto) 80.2 H Lymph % (Auto) 8.6 L Brooke % (Auto) 9.5 H Eos % (Auto) 1.3 Baso % (Auto) 0.2 Immature Gran # (Auto) 0.02 Neut # (Auto) 7.14 H Lymph # (Auto) 0.77 L Brooke # (Auto) 0.85 H Eos # (Auto) 0.12 Baso # (Auto) 0.02 PT INR PTT (Actin FS) Sodium Potassium Chloride Carbon Dioxide Anion Gap BUN Creatinine Estimated GFR/1.73 m2 BUN/Creatinine Ratio Glucose Calculated Osmolality Calcium Total Bilirubin AST ALT Alkaline Phosphatase Creatine Kinase Troponin T Qbi-M-Dhovkydbmit Pept Total Protein Albumin Globulin Albumin/Globulin Ratio Plasma Lactate 1.1 Urine Source CATH Urine Color YELLOW Urine Turbidity CLEAR Urine pH 7.5 Ur Specific [place] 1.009 Urine Protein TRACE A Ur Glucose (Stick) NEGATIVE Ur Ketones (Stick) NEGATIVE Urine Blood NEGATIVE Urine Nitrite NEGATIVE Urine Bilirubin NEGATIVE Urobilinogen Dipstick NORMAL Urine Leukocytes NEGATIVE Urine WBC (Auto) <10 Urine RBC (Auto) <10 U Epithel Cells (Auto) <10 Urine Bacteria (Auto) 1+ 05/08/19 05/08/19 05/08/19 20:17 20:17 20:17 WBC RBC Hgb Hct MCV MCH MCHC RDW Std Deviation Plt Count MPV Immature Gran % (Auto) Neut % (Auto) Lymph % (Auto) Brooke % (Auto) Eos % (Auto) Baso % (Auto) Immature Gran # (Auto) Neut # (Auto) Lymph # (Auto) Brooke # (Auto) Eos # (Auto) Baso # (Auto) PT 15.1 INR 1.17 PTT (Actin FS) 33.4 Sodium 143 Potassium 3.1 L Chloride 95 L Carbon Dioxide 33 Anion Gap 15 BUN 5 L Creatinine 0.4 L Estimated GFR/1.73 m2 > 60 BUN/Creatinine Ratio 13 Glucose 90 Calculated Osmolality 282 Calcium 8.8 Total Bilirubin 0.70 AST 28 ALT 9 L Alkaline Phosphatase 214 H Creatine Kinase 47 Troponin T < 0.010 Cri-H-Ekslsybrtua Pept Total Protein 6.3 Albumin 2.9 L Globulin 3.4 Albumin/Globulin Ratio 0.9 Plasma Lactate Urine Source Urine Color Urine Turbidity Urine pH Ur Specific [place] Urine Protein Ur Glucose (Stick) Ur Ketones (Stick) Urine Blood Urine Nitrite Urine Bilirubin Urobilinogen Dipstick Urine Leukocytes Urine WBC (Auto) Urine RBC (Auto) U Epithel Cells (Auto) Urine Bacteria (Auto) 05/08/19 20:17 WBC RBC Hgb Hct MCV MCH MCHC RDW Std Deviation Plt Count MPV Immature Gran % (Auto) Neut % (Auto) Lymph % (Auto) Brooke % (Auto) Eos % (Auto) Baso % (Auto) Immature Gran # (Auto) Neut # (Auto) Lymph # (Auto) Brooke # (Auto) Eos # (Auto) Baso # (Auto) PT INR PTT (Actin FS) Sodium Potassium Chloride Carbon Dioxide Anion Gap BUN Creatinine Estimated GFR/1.73 m2 BUN/Creatinine Ratio Glucose Calculated Osmolality Calcium Total Bilirubin AST ALT Alkaline Phosphatase Creatine Kinase Troponin T Kid-T-Nxxcfjdrgkz Pept 265 Total Protein Albumin Globulin Albumin/Globulin Ratio Plasma Lactate Urine Source Urine Color Urine Turbidity Urine pH Ur Specific [place] Urine Protein Ur Glucose (Stick) Ur Ketones (Stick) Urine Blood Urine Nitrite Urine Bilirubin Urobilinogen Dipstick Urine Leukocytes Urine WBC (Auto) Urine RBC (Auto) U Epithel Cells (Auto) Urine Bacteria (Auto) Orders Category Date Time Status Cardiac Monitoring DIRECTED Care 05/08/19 19:22 Active IV Insertion ORDERED Care 05/08/19 19:22 Completed Notify MD of + Sepsis Screen NOW Care 05/08/19 19:22 Active Notify Physician As Ordered Care 05/08/19 19:22 Active CHEST-1 VIEW [RAD] Stat Exams 05/08/19 19:22 Completed BLOOD CULTURE [BLDCUL] Stat Lab 05/08/19 19:55 Results BNP [PRO B-NATRIURETIC PEPTIDE] Stat Lab 05/08/19 20:17 Completed CBC WITH DIFF [HEME] Stat Lab 05/08/19 20:17 Completed CK PROFILE [SP CHEM] Stat Lab 05/08/19 20:17 Completed COMPREHENSIVE METABOLIC PANEL [CHEM] Stat Lab 05/08/19 20:17 Completed LACTATE, PLASMA [CHEM] Lab 05/08/19 20:17 Completed LACTATE, PLASMA [CHEM] Lab 05/08/19 22:30 Uncollected LACTATE, PLASMA [CHEM] Lab 05/09/19 01:30 Uncollected PROTIME WITH INR [COAG] Stat Lab 05/08/19 20:17 Completed PTT [COAG] Stat Lab 05/08/19 20:17 Completed TROPONIN T Stat Lab 05/08/19 20:17 Completed URINALYSIS W/POSS RFLX CULT [URINALYSIS] Stat Lab 05/08/19 19:40 Completed Oxygen Device Stat Oth 05/08/19 19:22 Completed EKG [EKG] Stat Ther 05/08/19 18:47 Draft Result Diagrams: 05/09/19 04:33 05/09/19 04:33 - REASSESSMENT Reassessment #1 Status: unchanged (still wheezing and having sob inspite of treatment with neb and steroid. Discussed admission with patient) - EKG 1 EKG Read and Signed by:: Huang Mojica Rate: 91 [place]: left QRS: normal - XRAY 1 XRAY Study: Chest ( EXAM: CHEST-1 VIEW HISTORY: Sepsis TECHNIQUE: Single view COMPARISON: 02/19/2019 FINDINGS: The lungs are well expanded. The heart is not enlarged. No change in the right jugular portacatheter. The vessels are not distended. There are no infiltrates. No effusion identified. IMPRESSION: No pneumonia Electronically signed by Josué Aguero 05/08/2019 8:16 PM 05/08/192015 Interpreting Physician: Josué Aguero MD Dictated Date/Time: 05/08/192014 cc: Mercedez Em MD; Gregorio Hester MD) - CONSULTS/PCP/HOSPITALIST Notification #1 *Consult/PCP/Hospitalist*: Dr Berumen Time Discussed: 23:18 Consult Disposition: Admit ( he wants ABG ordered and he is coming down to see pt) Departure - Departure Date of Disposition Decision: 05/08/19 Time of Disposition Decision: 23:17 DIAGNOSIS: COPD with acute exacerbation Disposition: ADMITTED INPATIENT 09 Certified Medical Emergency: Emergent Condition: Fair - Critical Care Note This patient required my direct & personal management of CC.: No Attestation - Physician/ SHELDON Attestation Patient care was provided by Advanced Practice Provider:: No The physician spent face to face time with patient:: Yes Advanced Practice Provider documentation review:: Supervising physician onsite and consulted in the evaluation and care of this patient. The physician did have a face to face encounter with the patient.
[2019-05-08] MEDS ORDERED: KLOR-CON POWDER PACKET PO ONE (21:47)
[2019-05-08] MEDS ORDERED: SOLU-MEDROL IV ONE (21:47)
[2019-05-08] MEDS ORDERED: DUONEB (A & A) INH ONE (21:47)
[2019-05-08] MEDS ORDERED: ALBUTEROL NEB INH ONE ×2 (21:48→23:16)
[2019-05-08 23:36] LABS: ALLEN TEST YES; BE 13.5 mmoll (-3.0-3.0); BLOOD TYPE ARTERIAL; HCO3-(ACT) 35.1 mmoll (20.0-26.0); METHB 0.8 % (0.0-1.5); O2(CT) 21.1 mL/dL (15.0-23.0); PO2(98.6) 64 mmHg (60-100); SAMPLE BLOOD; SAO2 96.4 % (95.0-100.0); THB 17.1 g/dL (11.5-17.4); pH(98.6) 7.49 (7.35-7.45)
[2019-05-08 23:38] LABS: MODALITY CANNULA
[2019-05-08 23:39] LABS: O2HB 88.1 % (95.0-99.0); PCO2(98.6) 52 mmHg (35-45)
[2019-05-08] MEDS ORDERED: KLOR-CON PO ONE (23:58)
[2019-05-08] MEDS: SOLU-MEDROL IV SCH (23:58)
[2019-05-09] MEDS: REGLAN PO PRN ×4 (00:48→21:04)
[2019-05-09] MEDS: PERCOCET-10 PO PRN ×6 (00:48→23:51)
[2019-05-09] MEDS: NS 1,000 ML IV SCH ×2 (01:17→13:29)
[2019-05-09] MEDS: LEVAQUIN 500 MG/D5W 500 MG/100 ML IVPB IV SCH ×2 (01:19→23:51)
--- NOTE | 2019-05-09 03:52 | HISTORY AND PHYSICAL ---
PRIMARY CARE PHYSICIAN: Dr. Homer Spring. CHIEF COMPLAINT: Shortness of breath and weakness times several days. HISTORY OF PRESENTING ILLNESS: A 78-year-old female with a history of hypertension, metastatic colon cancer to liver and osteoporosis who had presented to the emergency department with 3 to 4 days history of having worsening shortness of breath. The patient states that she was weak during this time. She was not really able to get out of her bed. The patient subsequently was evaluated in the emergency department and it seemed that she was having an exacerbation of her COPD and due to her presenting symptoms it was thought that she would require admission for further management. At the time of my examination, patient denied any headache, fever, chills, chest pain, hemoptysis, melena, but complained of shortness of breath and not feeling well. PAST MEDICAL HISTORY: Includes hypertension, metastatic colon cancer to liver, osteoporosis. PAST SURGICAL HISTORY: Colon resection, hysterectomy, leg surgery. ALLERGIES: Morphine, penicillin, Dilaudid, Phenergan, Zofran. CURRENT MEDICATIONS: Include amlodipine 10 mg p.o. daily, lisinopril 40 mg p.o. daily, Reglan 10 mg p.o. q.6 hours, Percocet 10/325 one p.o. q.6 hours, Xarelto 10 mg p.o. q.a.m. SOCIAL HISTORY: 50+ pack years history of smoking. She denies any history of alcohol or illicit drug use. FAMILY HISTORY: Positive for coronary artery disease in father. REVIEW OF SYSTEMS: Fourteen point review of system as listed in HPI. Other systems negative. PHYSICAL EXAMINATION: GENERAL: Cooperative, friendly female. She is resting more comfortably. She is able to speak in full sentences. VITAL SIGNS: Temperature 98.2 degrees, pulse 94, respirations 22, blood pressure 140/87. She is saturating 90%. HEENT: Atraumatic, normocephalic. Extraocular movements intact. PERRLA. NECK: No masses. CHEST: Scattered wheezes. CARDIOVASCULAR: Regular rate and rhythm. ABDOMEN: Soft. Positive bowel sounds. EXTREMITIES: No edema. NEUROLOGIC: She is awake, alert, oriented x3. GENITOURINARY: No bladder distention. SKIN: Warm. LABORATORIES AND STUDIES: Sodium 143, potassium 3.1, chloride 95, CO2 is 33, BUN is 5, creatinine 0.4, glucose is 90. Blood gas shows a pCO2 of 52, pH of 7.49. WBCs 8.92, hemoglobin 17.5, hematocrit 54.1, platelets 191,000. Chest x-ray, no pneumonia noted. ASSESSMENT: A 78-year-old female with a history of hypertension, metastatic colon cancer to the liver who had presented to emergency department with 3 to 4 days history of worsening shortness of breath and weakness. She was evaluated in the emergency department and due to her presenting symptoms she will require admission for further management. 1. Acute chronic obstructive pulmonary disease exacerbation. 2. Metastatic colon cancer to liver. 3. Hypertension. 4. Ongoing tobacco abuse. PLAN: 1. We will admit patient to medical floor with telemetry. 2. We will continue with IV Solu-Medrol, IV antibiotics, DuoNebs. 3. We will consult her oncologist to follow along. 4. We will monitor blood pressure. Resume antihypertensive agent. 5. Counseled patient on smoking cessation extensively. 6. The patient is on Xarelto and this will suffice for DVT prophylaxis. 7. We will continue to follow, and reassess and make further recommendation based on patient's clinical course. cc: Steve Berumen MD
[2019-05-09] MEDS: DUONEB (A & A) INH SCH ×6 (04:02→23:24)
[2019-05-09 04:51] LABS: AGAP 12; BUN 6 mg/dL (8-22); CALCIUM 8.4 mg/dL (8.8-10.2); CHLORIDE 98 mmol/L (98-107); COSMO 283; CREATININE 0.5 mg/dL (0.5-0.9); ESTIMATED GFR > 60; GLUCOSE 114 mg/dL (70-104); POTASSIUM 3.3 mmol/L (3.5-5.1); SODIUM 143 mmol/L (136-145); TCO2 33 mmol/L (25-35)
[2019-05-09 05:01] LABS: BASO# 0.01 X1000 (0.0-0.2); BASO% 0.1 % (0.0-0.8); EOS# 0.01 X1000 (0.0-0.7); EOS% 0.1 % (0.0-10.0); HEMATOCRIT 51.6 % (37.0-47.0); HEMOGLOBIN 16.6 g/dL (12.0-16.0); IMM GRAN# 0.02 X1000 (0.0-0.04); IMM GRAN% 0.2 % (0.0-0.5); LYMPH# 0.28 X1000 (1.2-3.4); LYMPH% 2.5 % (20.5-51.1); MCH 32.2 PG (27-31); MCHC 32.2 g/dL (33-37); MCV 100.2 FL (81-99); MONO# 0.14 X1000 (0.11-0.59); MONO% 1.3 % (1.7-9.3); MPV 10.8 FL (7.4-10.4); NEUT# 10.62 X1000 (1.4-6.5); NEUT% 95.8 % (42.2-75.2); PLT 195 X1000 (130-400); RBC 5.15 XMIL (4.2-5.4); RDW 15.7 % (11.5-14.5); WBC 11.08 X1000 (4.8-10.8)
[2019-05-09] MEDS: NORVASC PO SCH (08:13)
[2019-05-09] MEDS: SOLU-MEDROL IV SCH ×2 (08:13→16:32)
[2019-05-09] MEDS: PRINIVIL PO SCH (08:14)
[2019-05-09] MEDS: XARELTO PO SCH (08:14)
--- NOTE | 2019-05-09 12:38 | PROGRESS NOTE ---
DATE: 05/09/2019 SUBJECTIVE: The patient reports breathing a little bit better than compared with yesterday but not completely back to normal. OBJECTIVE: Vital Signs: Temperature 98.6 degrees, heart rate 110, respiratory rate 17, blood pressure 130/84, O2 saturation 92% on 2 L nasal cannula. General: This is a chronically ill- appearing, 78-year-old female lying in bed, in no acute distress. Cardiovascular: S1, S2 heard. No murmurs, gallops, or rubs. Regular rate and rhythm. Respiratory: Decreased breath sounds globally with minimal wheezing noted in both pulmonary bases. The patient is not using any accessory muscles or having work of breathing. Abdomen: Soft, nontender to palpation. Bowel sounds present. No organomegaly. Extremities: No clubbing, cyanosis, or edema. Peripheral pulses present in both legs. Neurological: Patient alert oriented x3. Moves 4 extremities. Laboratory Data: White cell count 11.08, hemoglobin 16.6, hematocrit 51.6, platelets 195,000 with BMP that reveals potassium 3.3. ASSESSMENT AND PLAN: 1. Chronic obstructive pulmonary disease exacerbation. We will continue with breathing treatments and intravenous steroids as well. We will continue with antibiotics as well. 2. Metastatic colon cancer to the liver aware. I do not think we need to consult her oncologist. 3. Hypertension blood pressure is a little bit elevated. We will resume blood pressure medications as needed. Disposition: We will continue to monitor this patient closely. cc: Lauro Mina MD
[2019-05-09] MEDS ORDERED: ATIVAN PO ONE ×2 (20:30→20:37)
[2019-05-10] MEDS: REGLAN PO PRN ×3 (03:10→16:39)
[2019-05-10] MEDS: DUONEB (A & A) INH SCH ×5 (03:14→19:01)
[2019-05-10] MEDS: PERCOCET-10 PO PRN ×4 (04:01→17:31)
[2019-05-10] MEDS ORDERED: ATIVAN PO ONE (06:39)
[2019-05-10 06:42] LABS: HEMATOCRIT 50.7 % (37.0-47.0); HEMOGLOBIN 16.1 g/dL (12.0-16.0); IMM GRAN# 0.04 X1000 (0.0-0.04); IMM GRAN% 0.2 % (0.0-0.5); LYMPH# 0.44 X1000 (1.2-3.4); LYMPH% 2.1 % (20.5-51.1); MCH 32.1 PG (27-31); MCHC 31.8 g/dL (33-37); MONO% 6.3 % (1.7-9.3); MPV 10.6 FL (7.4-10.4); NEUT# 18.71 X1000 (1.4-6.5); NEUT% 91.4 % (42.2-75.2); PLT 183 X1000 (130-400); RBC 5.02 XMIL (4.2-5.4); WBC 20.49 X1000 (4.8-10.8)
[2019-05-10] MEDS: XARELTO PO SCH ×2 (07:33→09:55)
[2019-05-10] MEDS: PRINIVIL PO SCH ×2 (07:33→09:55)
[2019-05-10] MEDS: NORVASC PO SCH ×2 (07:33→09:55)
[2019-05-10 07:43] LABS: AGAP 18; ALB/GLOB RATIO 1.1; ALBUMIN 3.3 g/dL (3.5-5.0); ALKALINE PHOSPHATASE 187 U/L (32-104); BUN 10 mg/dL (8-22); CALCIUM 8.3 mg/dL (8.8-10.2); CHLORIDE 101 mmol/L (98-107); COSMO 286; CREATININE 0.5 mg/dL (0.5-0.9); ESTIMATED GFR > 60; GLUCOSE 102 mg/dL (70-104); GOT 32 U/L (10-30); GPT 12 U/L (10-36); POTASSIUM 3.3 mmol/L (3.5-5.1); SODIUM 144 mmol/L (136-145); TCO2 25 mmol/L (25-35); TOTAL BILIRUBIN 0.46 mg/dL (0.20-1.00); TOTAL PROTEIN 6.3 g/dL (6.3-8.3)
--- NOTE | 2019-05-10 10:56 | Diag Imaging Result Doc PS360 ---
EXAM: CT THORAX W/CONTRAST HISTORY: pneumonia TECHNIQUE: CT chest with intravenous contrast COMPARISON: 02/19/2019 FINDINGS: No pleural effusions. No cardiomegaly. No aortic aneurysm or dissection. Severe atherosclerosis. No central pulmonary emboli. No enlarged lymph nodes. There is fluid in the esophagus. There is a right sided portacatheter. No pneumothorax. Severe emphysema. Interval development of a 9 mm pleural-based nodule in the left lower lobe on image 56, a 5 mm nodule in the right upper lobe on image 19 and a 4 mm nodule laterally in the right upper lobe on image 21. No consolidation. There is scarring and an air-filled cavity in the left apex. Limited images through the upper abdomen reveal worsening hepatic metastases. IMPRESSION: 1.No pneumonia 2.Development of pulmonary nodules consistent with pulmonary metastases 3.Severe emphysema with scarring in the left apex 4.Worsening hepatic metastases This exam was performed using automated exposure control, adjustment of mA or kV according to patient size, and/or use of iterative reconstruction technique. Electronically signed by Josué Aguero 05/10/2019 10:54 AM
[2019-05-10] MEDS: LACTULOSE PO SCH ×2 (13:45→21:10)
[2019-05-10] MEDS: KLONOPIN PO PRN ×2 (14:55→21:10)
--- NOTE | 2019-05-10 16:03 | PROGRESS NOTE ---
DATE: 05/10/2019 SUBJECTIVE: Patient has no major complaints. Breathing is a bit better. OBJECTIVE: Vitals: Blood pressure is 134/86, heart rate of 116, respiratory rate 18, temperature 98.3 degrees, 95% on room air. Cardiovascular: Regular rate and rhythm. Pulmonary: Bilateral breath sounds. No wheezing. GI: Soft, nontender, nondistended. Bowel sounds are positive. LABORATORY DATA: White count is 20, hemoglobin and hematocrit 16 and 50, platelets of 183,000. Potassium is 3.3. AST is 32. PROBLEM LIST: 1. Chronic obstructive pulmonary disease exacerbation. She is on breathing treatments, antibiotics. As far as I can tell, she is not on any steroids. She got a dose of steroids on the , but then they were stopped. She does look a little bit more tremulous, but we will continue to follow. 2. Metastatic colon cancer, but it has progressed. She is getting chemotherapy and radiation. It looks like she has pulmonary nodules consistent with pulmonary metastases, severe emphysema, and worsening hepatic metastases, so I will consult Dr. Hseter to evaluate that. 3. Hypertension. Stable currently. DISPOSITION: Pending her clinical status, but overall I am a little bit concerned about her current issues in relationship to her cancer that is worsening, and we will treat her constipation as well. cc: Cole Vu MD
[2019-05-10] MEDS: MIRALAX PO SCH (17:33)
[2019-05-10] MEDS: LEVAQUIN 500 MG/D5W 500 MG/100 ML IVPB IV SCH (21:11)
[2019-05-11] MEDS: DUONEB (A & A) INH SCH ×7 (00:17→23:23)
[2019-05-11] MEDS: LEVAQUIN 500 MG/D5W 500 MG/100 ML IVPB IV SCH ×2 (01:42→23:29)
[2019-05-11] MEDS: PERCOCET-10 PO PRN ×6 (01:43→23:28)
[2019-05-11] MEDS: REGLAN PO PRN (01:43)
[2019-05-11] MEDS: LACTULOSE PO SCH ×3 (01:44→22:22)
[2019-05-11] MEDS: KLONOPIN PO PRN ×4 (03:38→23:28)
[2019-05-11 06:58] LABS: BASO# 0.01 X1000 (0.0-0.2); BASO% 0.1 % (0.0-0.8); EOS# 0.08 X1000 (0.0-0.7); EOS% 0.6 % (0.0-10.0); HEMATOCRIT 51.6 % (37.0-47.0); HEMOGLOBIN 16.3 g/dL (12.0-16.0); IMM GRAN# 0.02 X1000 (0.0-0.04); IMM GRAN% 0.2 % (0.0-0.5); LYMPH% 6.1 % (20.5-51.1); MCHC 31.6 g/dL (33-37); MCV 101.4 FL (81-99); MONO# 1.17 X1000 (0.11-0.59); MPV 10.7 FL (7.4-10.4); NEUT# 10.99 X1000 (1.4-6.5); PLT 172 X1000 (130-400); RBC 5.09 XMIL (4.2-5.4); RDW 16.3 % (11.5-14.5); WBC 13.07 X1000 (4.8-10.8)
[2019-05-11 07:19] LABS: AGAP 10; BUN 9 mg/dL (8-22); CALCIUM 8.5 mg/dL (8.8-10.2); CHLORIDE 100 mmol/L (98-107); COSMO 286; CREATININE 0.5 mg/dL (0.5-0.9); ESTIMATED GFR > 60; GLUCOSE 71 mg/dL (70-104); POTASSIUM 3.1 mmol/L (3.5-5.1); SODIUM 145 mmol/L (136-145); TCO2 35 mmol/L (25-35)
[2019-05-11] MEDS: XARELTO PO SCH (09:49)
[2019-05-11] MEDS: NORVASC PO SCH (09:49)
[2019-05-11] MEDS: PRINIVIL PO SCH (09:49)
[2019-05-11] MEDS: MIRALAX PO SCH (09:49)
--- NOTE | 2019-05-11 14:01 | HEMO/ONC CONSULTATION ---
DATE: 05/11/2019 REASON FOR CONSULTATION: This is a known patient of ours for the treatment of metastatic colon cancer. HISTORY OF PRESENT ILLNESS: This is a 78-year-old, female who has metastatic colon cancer to the liver, as well as osteoporosis. We have been treating her in clinic with 5-FU, Avastin, and irinotecan, 05/08/2017. The patient also has a history of a PE in August of 2017, which she was placed on Xarelto. On 12/15/2018 and February of 2019, the patient had two procedures of Y90 radioembolization to her hepatic lesion. Shortly after that, she was admitted with pneumatosis intestinalis and discharged after a brief hospital stay. Her treatments have been on hold in the clinic since then. We intend to restart the patient's treatment but we are in the process of trying to get her stronger. Meanwhile, the patient presented to the emergency department with a 3 to 4 day history of worsening shortness of breath. She states that she was very weak and not able to get out of bed. In the ER, she was thought to be having exacerbation of her COPD and was admitted for further evaluation. A CT performed yesterday showed no pneumonia, development of pulmonary nodules consistent with pulmonary metastasis, severe emphysema, and worsening hepatic metastasis. The patient denies any headache, fevers, chills, chest pain, black or tarry stools, or significant pain. She does, however, complain of shortness of breath and severe weakness. PAST MEDICAL HISTORY: Includes hypertension, metastatic colon cancer to the liver, and osteoporosis. PAST SURGICAL HISTORY: Colon resection, hysterectomy, and leg surgery. ALLERGIES: Morphine, penicillin, Zofran, Phenergan, Dilaudid, and Xanax. CURRENT MEDICATIONS: Include Norvasc, lisinopril, Reglan, Percocet, and Xarelto. SOCIAL HISTORY: A 50+ pack year history of smoking. Denies alcohol or illicit drug use. REVIEW OF SYSTEMS: Include shortness of breath and weakness. All other review of systems are negative. VITAL SIGNS: Temperature 98.1 degrees, pulse rate 94, respiratory rate 19, blood pressure 145/87, O2 saturation 93% on room air. She is in 0/10 pain. PHYSICAL EXAMINATION: General: A female, chronically ill, in no acute distress. HEENT: Sclerae are anicteric. PERRLA. Oral mucosa is normal. Cardiovascular: Normal S1, S2. Heart rate and rhythm are regular. Respiratory: Some wheezes. Normal respiratory effort. Abdomen: Soft, nontender, nondistended. Positive bowel sounds. Extremities: No lower extremity edema noted. Neurological: Awake, alert, and oriented x3. No focal motor deficits noted. Skin: Warm, dry, and intact. LABORATORY: WBCs 13.07, hemoglobin 16.3, hematocrit 51.6, platelet count 172,000. Potassium 3.1, calcium 8.5. RADIOLOGY: Chest x-ray. No pneumonia. Chest CT: 1. No pneumonia. 2. Development of pulmonary nodules consistent with pulmonary metastasis. 3. Severe emphysema with scarring in the left apex. 4. Worsening hepatic metastasis. ASSESSMENT: 1. Acute chronic obstructive pulmonary disease exacerbation. 2. Metastatic colon cancer to the liver. 3. Possible metastasis to the lungs. 4. Deep venous thrombosis prophylaxis. 5. Nutrition and deconditioning. PLAN: We will continue to keep the patient's therapy on hold as she recovers from a COPD exacerbation. Please continue any medical management. We will continue to follow along. The patient will need to be encouraged to eat meals sitting out of bed and drinking protein shakes. She should also be encouraged to do exercises. She may require physical therapy to help get her confidence to stand up. We will evaluate the CT scan and discuss further treatment with the patient once discharged, in the clinic. Dictated by KARMEN Gaytan for Gregorio Hester MD Patient seen and examined. As above. Patient admitted with COPD exacerbation. She continues to have significant problems with anxiety. CT scan done reveals small pulmonary metastases which have increased. Her hepatic metastasis appear to be slightly larger but this may simply be related to recent SIR SPHERES. We will have her CT scan and reviewed by interventional radiology in [place]. For now continue in management. Gregorio Hester M.D. cc: Gregorio Hester MD [facility]
[2019-05-11] MEDS: PREDNISONE PO SCH (14:55)
--- NOTE | 2019-05-11 15:00 | PROGRESS NOTE ---
DATE: 05/11/2019 SUBJECTIVE: Patient resting comfortably in bed, not in any obvious distress. OBJECTIVE: Vital Signs: Temperature 98.1 degrees, pulse 94, respiratory rate 19, blood pressure 145/87, oxygen saturation is 93%. HEENT: Atraumatic, normocephalic. Cardiovascular: S1, S2. Respiratory: Has evidence of good air entry bilaterally. Abdomen: Soft, nontender. No masses felt. Extremities: No significant edema. Central Nervous System: No obvious focal deficits noted. LABORATORY DATA: WBC is 13.07, hematocrit 51.3, Sodium is 145, potassium 3.1, chloride is 100, bicarb 35, BUN is 9, creatinine 0.5. ASSESSMENT AND PLAN: 1. Chronic obstructive pulmonary disease exacerbation. Maintain the patient on nebulized bronchodilators, steroids, as well as antibiotics. 2. Metastatic colon carcinoma. Oncology consulted. 3. Hypertension. Optimize blood pressure control. 4. Disposition. I believe the patient can be discharged home in the next 1 day. cc: Prabhjot Allison MD MTDD
[2019-05-12] MEDS: DUONEB (A & A) INH SCH ×6 (03:08→23:05)
[2019-05-12] MEDS: PERCOCET-10 PO PRN ×4 (03:27→19:28)
[2019-05-12] MEDS: KLONOPIN PO PRN ×3 (05:46→17:51)
--- NOTE | 2019-05-12 08:48 | PROGRESS NOTE ---
DATE: 05/12/2019 SUBJECTIVE: This is a 78-year-old. Her doctor is Dr. Homer Spring. She presented with shortness of breath, weakness. A 78-year-old with history of hypertension, metastatic colon cancer to liver, osteoporosis, who presented to the emergency department with 3 to 4 days of worsening shortness of breath. She has been weak during this time, unable to get out of bed. The patient was subsequently admitted to the emergency department, felt she had an exacerbation of COPD. She reports that her breathing is doing well at the present time. PAST MEDICAL HISTORY: Again includes hypertension, metastatic colon cancer to the liver, osteoporosis. PAST SURGICAL HISTORY: She is status post colon resection, hysterectomy. She has had surgery on her leg. PHYSICAL EXAMINATION: General: Today, comfortable, awake and alert. Vital Signs: Temp 98.1 degrees, pulse 80, respirations 18, blood pressure 128/68. HEENT: Pupils are equal and round. Lungs: Clear in all lung saravia. Cardiovascular: Regular rhythm and rate without murmur or S3. Abdomen: Soft. Skin: Warm and dry. Urine output is 1400 mL. ASSESSMENT AND PLAN: 1. Chronic obstructive pulmonary disease exacerbation. Continue to maintain the patient on nebulized bronchodilator, steroids, and antibiotic. 2. Metastatic colon cancer. I think the plan is to get a full CT to evaluate extent of metastasis. 3. Hypertension. Blood pressure appears to be well controlled. 4. I suspect that the patient will be discharged in the next couple of days. Will keep the patient's therapy on hold until she recovers from chronic obstructive pulmonary disease exacerbation. The patient will need to be encouraged to continue to eat meals and drink protein shakes. Continue to do her exercises. She has significant problems with anxiety. CT scan done reveals small pulmonary metastases, which have increased. Her hepatic metastasis appears slightly larger, but this simply may be related to the technique. CT scan will be reviewed by Interventional Radiology in [place]. cc: Evangelista Leigh MD
[2019-05-12] MEDS: NORVASC PO SCH (09:44)
[2019-05-12] MEDS: PRINIVIL PO SCH (09:44)
[2019-05-12] MEDS: XARELTO PO SCH (09:44)
[2019-05-12] MEDS: PREDNISONE PO SCH (09:44)
[2019-05-12] MEDS: LACTULOSE PO SCH ×2 (11:50→22:42)
[2019-05-12] MEDS: MIRALAX PO SCH (11:50)
--- NOTE | 2019-05-12 12:54 | Diag Imaging Result Doc PS360 ---
EXAM: CT ABD/PELVIS W/PO AND IV CON 05/12/2019 HISTORY: restaging metatastasis TECHNIQUE: This exam was performed using automated exposure control, adjustment of mA or kV according to patient size, and/or use of iterative reconstruction technique. COMMENT: Compared to the previous study of 02/19/2019 there is worsened atelectasis or pneumonia in the right posterior costophrenic sulcus of the right lower lobe. This is also worse compared to the thoracic CT of 05/10/2019. There is what appears to be a largely necrotic mass in the anterior portions of the left and right hepatic lobes which may be composed of multiple metastases which have grown together. This is at least 8.3 cm in aggregate transverse dimension compared to 6.4 cm at the time of the previous study of 02/19/2019. The aorta is partially calcified without evidence of significant aneurysm. The mesenteric and renal arteries are patent. There is considerable calcific and noncalcific plaque in the proximal portion of the superior mesenteric artery. There is a horseshoe kidney. The collecting system of both moieties appears to be somewhat distended compared to the previous examination. The adrenal glands and spleen are stable in appearance as is the pancreas. The latter demonstrates a cyst in the body which has not changed significantly in size or appearance. There is no evidence of significant adenopathy. The gallbladder is not distended and there are no apparent gallstones. There is a fair amount of stool in the visualized portion of the colon. Pelvis: The urinary bladder is not distended. There is some stool in the rectum. There is no evidence of significant adenopathy. There has been hysterectomy. There is some heterotopic bone formation adjacent to the ischial tuberosity on the right. No evidence of acute bony abnormality is present. IMPRESSION: 1. Worsened hepatic metastatic disease. 2. Mild bilateral hydronephrosis. 3. Worsened atelectasis and/or pneumonia in the right lower lobe. Electronically signed by Santy Richards 05/12/2019 12:52 PM
--- NOTE | 2019-05-12 13:01 | HEMO/ONC PROGRESS NOTE ---
DATE: 05/12/2019 SUBJECTIVE: Ms. Ibarra is sitting up in bed this morning, eating her breakfast. She appears very shaky this morning, more so than normal. The patient states that she does not feel very well but she tells me that this is how she gets when she is worst. She is just very shaky and unsteady, although she cannot describe that she necessarily feels bad right now. She states her breathing is better. She did have a good night's sleep. She is very concerned about the CT showing worsening metastasis. OBJECTIVE: Vital Signs: Temperature 98.1 degrees, pulse rate 80, respiratory rate 18, blood pressure 121/68, O2 saturation 95% on room air. She is in 3/10 abdominal pain. Physical Examination: General: This is an elderly-appearing, chronically ill female in no acute distress. HEENT: Sclerae are anicteric. PERRLA. Oral mucosa is normal. Cardiovascular: Normal S1, S2. Heart rate and rhythm regular. Respiratory: Lungs are clear for the most part. Normal respiratory effort. Abdomen: Soft, nontender, nondistended. Positive bowel sounds. Extremities: No lower extremity edema noted. Essential tremor obvious. Neurological: Awake, alert, and oriented x3. Skin: Warm, dry, and intact. No labs drawn for today. ASSESSMENT: 1. Acute chronic obstructive pulmonary disease exacerbation. 2. Metastatic colon cancer to the liver. 3. Possible metastasis to the lungs. 4. Deep venous thrombosis prophylaxis. 5. Nutrition and deconditioning. PLAN: The patient is a very anxious patient and she is very concerned about her most recent scans. The patient was due to have restaging scans done on 05/26/2019. Since she has already had a chest CT, we are going to add a CT abdomen, and pelvis to complete her restaging series. We will evaluate that for further metastasis. We will have her CT scan reviewed by interventional radiology in [place] to review if her hepatic metastasis appeared to be larger due to recent SIRS SPHERES. The patient needs to continue to get out of bed as she can. Continue medical management from a COPD standpoint. Provide her protein shakes and encouragement and confidence to get out of bed and move around by herself. We will continue to follow. We will look for CT abdomen and pelvis results. Dictated by KARMEN Gaytan for Gregorio Hester MD Patient seen and examined. As above. We will get her scans tend to match radiology for them to evaluate see if her liver metastasis actually increased or this is an effect of recent Y 90 therapy. Her pulmonary metastasis are minimally worse but these nodules are all subcentimeter at this time. She seems to be extremely anxious. Continue to manage her anxiety at this time. Continue to manage COPD exacerbation. Get her out of that. Work with physical therapy. Hopefully she will be ready for discharge soon. Gregorio Hester M.D. cc: Gregorio Hester MD [facility]
[2019-05-12] MEDS: LEVAQUIN 500 MG/D5W 500 MG/100 ML IVPB IV SCH (23:53)
[2019-05-13] MEDS: KLONOPIN PO PRN ×4 (00:15→19:49)
[2019-05-13] MEDS: PERCOCET-10 PO PRN ×6 (01:04→22:42)
[2019-05-13] MEDS: DUONEB (A & A) INH SCH ×4 (02:51→16:04)
[2019-05-13] MEDS: LACTULOSE PO SCH ×3 (08:51→19:49)
[2019-05-13] MEDS: XARELTO PO SCH (08:52)
[2019-05-13] MEDS: PRINIVIL PO SCH (08:52)
[2019-05-13] MEDS: PREDNISONE PO SCH (08:52)
[2019-05-13] MEDS: NORVASC PO SCH (08:52)
--- NOTE | 2019-05-13 08:52 | PROGRESS NOTE ---
DATE: 05/13/2019 SUBJECTIVE: She had a pretty good night. She is hungry. She is eating. She is very weak so needs some help going to the bathroom. I talked to her . Her wants to know if she should pursue hospice. He has to work 12 hours a day and he has no one to really watch out for her. OBJECTIVE: She remains afebrile. Temperature 97.6 degrees, pulse 75, respirations 18, blood pressure 122/80. HEENT: Pupils are equal and round. Lungs are clear in all lung saravia. Cardiovascular Examination: Regular rhythm and rate without murmur or S3. Abdomen is soft. Skin is warm and dry. Urine output is 3000 mL. ASSESSMENT AND PLAN: 1. Acute on chronic obstructive pulmonary disease exacerbation. Her breathing is doing much better. 2. Metastatic colon cancer to the liver. 3. Possible metastasis to her lungs. 4. Deep venous thrombosis prophylaxis. 5. Nutrition and deconditioning. 6. The patient had been very anxious and concerned about most recent scans and the plan of treatment. She was due to have restaging scans apparently on 05/26/2019. Since she has already had a chest CT, had a CT of the abdomen and pelvis, complete restaging to evaluate for further metastasis, I think this will be reviewed by the interventional radiologist. They are asking questions about help at home and whether she should pursue hospice, which they will discuss with Dr. Hester. Her abdominal and pelvic CT showed worsening hepatic metastatic disease and mild bilateral hydronephrosis, worsened atelectasis and pneumonia in the right lower lobe, so we are going to continue her antibiotics, treating her for pneumonia and chronic obstructive pulmonary disease exacerbation. Currently, medication, Norvasc 10 mg a day, Klonopin 0.5 mg every 6 hours as needed, lactulose 30 mL twice a day, Levaquin 500 mg intravenous daily, Prinivil 40 mg a day, oxycodone 10 mg every 4 hours as needed, polyethylene glycol 17 g by mouth daily, prednisone 20 mg a day, and Xarelto 10 mg every morning. cc: Evangelista Leigh MD
[2019-05-13] MEDS: MIRALAX PO SCH (08:53)
--- NOTE | 2019-05-13 13:18 | HEMO/ONC PROGRESS NOTE ---
DATE: 05/13/2019 SUBJECTIVE: Ms. Ibarra is sitting up in bed this morning. She is eating her breakfast. She notes that her appetite is very good. Her also notes that she has been eating more in the hospital than she does at home. The patient is beginning to feel stronger. She believes that her COPD exacerbation is under control. She is very anxious. She knows she needs to get up and attempt to walk and move about so that she can go home and still be able to take care of herself. She is having discussions with her about whether or not they want to continue on with therapy in the clinic. OBJECTIVE: Vital Signs: Temperature 97.8 degrees, pulse rate 79, respiratory rate 20, blood pressure 137/81, O2 saturation 96% on room air. She is in 8/10 abdominal pain. General: On physical examination, elderly female in no acute distress. HEENT: Sclera is anicteric. PERRLA. Oral mucosa is normal. Respiratory: Lung sounds are clear to auscultation. Normal respiratory effort. Cardiovascular: Normal S1, S2. Heart rate and rhythm regular. Gastrointestinal: Abdomen is soft, nondistended, nontender. Positive bowel sounds. Skin: Warm, dry, and intact. Neurological: Awake, alert, and oriented x3. She has an essential tremor. LABORATORY: No labs are drawn today. ASSESSMENT: 1. Acute chronic obstructive pulmonary disease exacerbation. 2. Metastasis colon cancer to the liver, metastasis to the lungs. 3. Deep vein thrombosis prophylaxis. 4. Nutrition and deconditioning. 5. Anxiety. PLAN: The patient seems to be improving. She is eating very well. Her appetite is good. We have completed her restaging scans, which do show that her liver metastasis has actually increased, but we want to get it to Radiology in [place] to see if this may be possibly the expected effects of her recent Y 90 therapy. Her pulmonary metastases are minimally worse, but these nodules are subcentimeter at this time. The patient needs to continue to get out of bed, utilize physical therapy as needed to encourage confidence, add protein shakes to her diet. Continue to manage her COPD exacerbation as necessary. Hopefully, she will be able to be discharged soon. Dictated by KARMEN Gaytan for Gregorio Hester MD Patient seen and examined. As above. Patient continues to krishnan significant amount of anxiety. I believe her issues with shortness of breath, tremulousness is most likely from panic attack/anxiety. She has not had COPD exacerbations over the last several years that I have seen her. I had a lengthy discussion with the patient and today. She has not received any chemotherapy from me over the last 3 months. I do not think she is strong to receive any chemotherapy at the current time unless she becomes stronger, which I do not believe will happen in the next 1-2 months. She has minimal worsening of her pulmonary metastasis and her liver metastasis. I have encouraged him to consider home health care and physical therapy upon discharge. We will request Dr. Leigh to aggressively manage her anxiety. Gregorio Hester M.D. cc: Gregorio Hester MD [facility]
[2019-05-14] MEDS: LACTULOSE PO SCH ×3 (00:02→20:45)
[2019-05-14] MEDS: LEVAQUIN 500 MG/D5W 500 MG/100 ML IVPB IV SCH ×2 (01:35→23:00)
[2019-05-14] MEDS: KLONOPIN PO PRN ×4 (01:35→20:45)
[2019-05-14] MEDS: DUONEB (A & A) INH SCH ×7 (02:58→22:32)
[2019-05-14] MEDS: PERCOCET-10 PO PRN ×6 (03:08→22:52)
[2019-05-14] MEDS: NORVASC PO SCH (08:18)
[2019-05-14] MEDS: PREDNISONE PO SCH (08:18)
[2019-05-14] MEDS: PRINIVIL PO SCH (08:18)
[2019-05-14] MEDS: XARELTO PO SCH (08:18)
[2019-05-14] MEDS: MIRALAX PO SCH (08:20)
--- NOTE | 2019-05-14 13:18 | HEMO/ONC PROGRESS NOTE ---
DATE: 05/14/2019 SUBJECTIVE: Ms. Ibarra is sitting up in bed this morning, eating her breakfast. She continues to eat very well. She states her appetite is very good. She does feel like she is better and able to return home, but she is very concerned that there is no one at home to cook for her, help her eat as well as she is, and take care of herself. She has a lot of anxiety in relation to her cancer diagnosis and having to return home alone. The patient states she is breathing better and she feels better overall. She and her are having further discussions about some sort of home healthcare. OBJECTIVE: Vital Signs: Temperature 98.3 degrees, pulse rate 97, respiratory rate 17, blood pressure 142/70, O2 saturation 95% on room air. She is in 2/10 abdominal pain. General: The patient is in no acute distress. HEENT: Sclerae is anicteric. PERRLA. Oral mucosa is normal. Respiratory: Lung sounds are clear to auscultation. Normal respiratory effort. Cardiovascular: Normal S1, S2. Heart rate and rhythm are regular. Gastrointestinal: Abdomen is soft, nondistended, nontender. Positive bowel sounds. Skin: Warm, dry, and intact. Neurological: She is awake, alert, and oriented x3. She appears shaky, most likely due to anxiety. LABORATORY DATA: There are no labs drawn today. ASSESSMENT: 1. Acute chronic obstructive pulmonary disease exacerbation. 2. Metastatic colon cancer to the liver, metastasis to the lungs. 3. Deep vein thrombosis prophylaxis. 4. Nutrition and deconditioning. 5. Anxiety. PLAN: The patient continues to krishnan a significant amount of anxiety. It is believed that most of her shortness of breath and tremors have been related to panic attack/anxiety. She seems to be improving. She is eating very well. Her appetite is good. She has a lot of anxiety regarding her most recent restaging scans, and her concern of going home without anyone there to help her. Her works 12-hour shifts, and he is not able to care for her or cook for her. They have been encouraged to review options with hospice or home healthcare with physical therapy upon discharge. From our standpoint, the patient is stable for discharge. Dictated by KARMEN Gaytan for Gregorio Hester MD Patient seen and examined. She continues to krishnan anxiety. Aditya continues to help her. I have had a lengthy discussion with the patient, and her nephew was in the room today. They understand her disease status. Questions have been answered. They are trying to make a decision if she needs to go for rehabilitation and discharged with home health care/PT versus comfort measures/hospice. Gregorio Hester M.D. cc: Gregorio Hester MD MTDD
--- NOTE | 2019-05-14 13:28 | PROGRESS NOTE ---
DATE: 05/14/2019 SUBJECTIVE: Ms. Ibarra reports that she is feeling better, and she is hoping to go home. I think her was hoping to get her home. I think he has talked about hospice. OBJECTIVE: Vital Signs: Temperature 98.3 degrees, pulse 97, respirations 17, blood pressure 142/70. HEENT: Pupils are equal and round. Lungs: Clear in all lung saravia. Cardiovascular: Regular rate without murmur or S3. Urine Output: 2800 mL. ASSESSMENT AND PLAN: 1. Acute chronic obstructive pulmonary disease exacerbation. 2. Metastatic colon cancer to the liver, metastasis to the lungs. 3. Deep venous thrombosis prophylaxis in place. 4. Nutrition and deconditioning, poor nutrition and deconditioning, poor appetite. 5. Anxiety. The patient seems to be improving. In the meanwhile, we have completed her restaging scans, which do show that her liver metastasis is actually increased, but we want to get radiology in [place] to see if maybe possibly the expected effects of the recent Y-90 therapy for pulmonary metastasis is minimally worse, but the nodules are subcentimeter at this time. The patient needs to continue to get out of bed, physical therapy, add protein shakes. I think the would like to get her home, and I think he was discussing getting hospice care, which was the report I received. She has minimal worsening in her pulmonary metastasis and liver metastasis, and I encourage them to consider home health and physical therapy on discharge. She would like to be back on her Klonopin, and I will see if we can get her back on that. cc: Evangelista Leigh MD
[2019-05-15] MEDS: KLONOPIN PO PRN ×3 (02:28→15:00)
[2019-05-15] MEDS: PERCOCET-10 PO PRN ×4 (03:11→15:57)
[2019-05-15] MEDS: DUONEB (A & A) INH SCH ×4 (03:11→11:15)
[2019-05-15] MEDS: MIRALAX PO SCH (08:51)
[2019-05-15] MEDS: PRINIVIL PO SCH (08:52)
[2019-05-15] MEDS: PREDNISONE PO SCH (08:52)
[2019-05-15] MEDS: NORVASC PO SCH (08:52)
[2019-05-15] MEDS: XARELTO PO SCH (08:52)
[2019-05-15] MEDS: LACTULOSE PO SCH ×2 (08:52→08:55)
--- NOTE | 2019-05-15 09:55 | PROGRESS NOTE ---
DATE: 05/15/2019 SUBJECTIVE: Ms. Ibarra had a good night. She feels better, a little stronger. She is eating well. Bowels are moving. Hoping to get her to rehab. They are looking for opportunities. She decided she wanted to go to rehab and not go home with hospice. OBJECTIVE: Temperature is 98.6 degrees, pulse 75, respirations 16, blood pressure 144/87. Pupils are equal and round. Lungs are clear in all lung saravia. Cardiovascular with regular rhythm and rate without murmur or S3. Abdomen is soft. Skin is warm and dry. Urine output is 4000 mL. ASSESSMENT AND PLAN: 1. Acute chronic obstructive pulmonary disease exacerbation, improved. Her breathing is doing better. 2. Metastatic colon cancer with metastasis to the lungs and to the liver. 3. Deep venous thrombosis prophylaxis in place. 4. Nutrition and deconditioning, looking for rehab. 5. Anxiety that is improved. Review of her orders: 1. Norvasc 10 mg daily. 2. Klonopin 0.5 mg q.6 hours p.r.n. 3. Levofloxacin 500 mg IV q.24 hours. 4. Prinivil 40 mg daily. 5. Reglan 10 mg p.o. q.6 hours p.r.n. 6. Oxycodone 10 mg q.4 hours p.r.n. 7. Polyethylene glycol 17 g p.o. daily. 8. Prednisone 20 mg a day. 9. Xarelto 10 mg p.o. q.a.m. cc: Evangelista Leigh MD
--- NOTE | 2019-05-15 13:10 | DISCHARGE SUMMARY ---
ADMISSION DATE: 05/09/2019 DISCHARGE DATE: 05/15/2019 PRIMARY CARE PHYSICIAN: A patient of Dr. Gregorio Hester. I think her primary care is Dr. Homer Spring. HISTORY: She presented with shortness of breath, weakness times several days. A 78-year-old with a history of hypertension, metastatic colon cancer to liver, osteoporosis that has presented to the emergency department with 3 or 4 days history of worsening shortness of breath. The patient states that she was weak during this time, not really able to get out of bed and subsequently was evaluated in the emergency department and seemed to have exacerbation of COPD. Due to her presenting symptoms it is thought that she would be admitted. PAST MEDICAL HISTORY: 1. Hypertension. 2. Metastatic colon cancer to the liver, and apparently to the lungs. 3. Osteoporosis. PAST SURGICAL HISTORY: Colon resection, hysterectomy, leg surgery. ADMISSION DIAGNOSIS: 1. Acute on chronic obstructive pulmonary disease exacerbation. 2. Metastatic colon cancer to the liver. 3. Hypertension. 4. Ongoing tobacco use. HOSPITAL COURSE: She was admitted on telemetry, given IV Solu-Medrol and antibiotics and DuoNebs, treated her for bronchiectic type organisms, and she steadily improved. I counseled her on stopping smoking, she was given a nicotine patch. Abdominal and pelvic CT done on 05/12/2019 showed worsened hepatic metastases, mild bilateral hydronephrosis, worsened atelectasis, and pneumonia in the right lower lobe. So I treated her for pneumonia. Hematology, Dr. Hester following her for acute obstructive pulmonary disease exacerbation, metastatic colon cancer with liver metastases to the lungs. We gave her deep venous thrombosis prophylaxis, and we worked on her nutrition and conditioning. She does have another element of anxiety, I kept her on her Klonopin. She seemed to be improving. Appetite was good. A restaging scan showed the liver metastases had actually increased, but went on and sent those films to [facility]. She is still very weak. Her works and so I wanted to pursue going to rehab, and so I felt she was ready go to rehab on 05/15/2019. DISCHARGE MEDICATIONS: She will continue getting DuoNebs as needed, Norvasc 10 mg a day, Klonopin 0.5 mg q.6 hours p.r.n., this is situational anxiety, lactulose 30 mL b.i.d., Levaquin we will give her 500 mg p.o. daily for another 7 days, Prinivil 40 mg a day, Reglan 10 mg p.o. q.6 hours p.r.n. nausea, Percocet 10s 1 q.4 hours p.r.n., MiraLAX 17 g daily, prednisone 20 mg she takes daily, and she will do that for another 4 weeks. Xarelto 10 mg a day. cc: Evangelista Leigh MD
--- NOTE | 2019-05-15 15:47 | HEMO/ONC PROGRESS NOTE ---
DATE: 05/15/2019 SUBJECTIVE: Ms. Ibarra is awake and alert this morning sitting up eating breakfast in her bed this morning. She states she is feeling a lot better. She has decided to go to a rehab center to continue getting the help she needs to get stronger. She is optimistic about this decision. She has no other complaints. OBJECTIVE: Vital Signs: Temperature 97.7 degrees, pulse rate 95, respiratory rate 16, blood pressure 136/77, O2 saturation 91% on room air, she is in 7/10 abdominal pain. General: Elderly female in no acute distress. HEENT: Sclerae is anicteric. PERRLA. Oral mucosa is normal. Respiratory: Lung sounds are clear to auscultation. Normal respiratory effort. Cardiovascular: Normal S1, S2. Heart rate and rhythm is regular. Skin: Warm, dry and intact without ecchymosis or petechiae. Abdomen: Soft, nondistended, nontender. Positive bowel sounds. Neurological: Awake, alert, oriented x3. No focal motor deficits noted. ASSESSMENT: 1. Metastatic colon cancer to the liver with metastasis to the lungs. 2. Deep vein thrombosis prophylaxis. 3. Nutrition and deconditioning. 4. Anxiety. PLAN: The patient and her have decided to go to a rehab center. She will be discharged there while she continues to have help and meals provided for her. She continues to eat and have a good appetite. She wants to be mobile and exercise and utilize physical therapy as necessary. We will follow up with the patient on outpatient. Dictated by KARMEN Gaytan for Gregorio Hester MD cc: Gregorio Hester MD
[2019-05-15 16:04] VITALS: BP 121/77
== END 2019-05-15 17:47 | DRG 190 ==
LOC: ED 18:15 → SUATTDRO 05-09 03:10 → 4N 05-09 03:10
PROVIDERS: ATTEND Emergency Medicine